=== PATIENT | male | born 1935 | race Caucasian/White ===

== ENCOUNTER → 2018-07-07 10:27 | Outpatient (CLI) | payer MEDICARE, BC ==
[~2018-07-07 10:27] MED LIST: BAYER CHEWABLE81 MG PO; DIOVAN160 MG PO; LIPITOR20 MG PO; LOSARTAN-HCTZ1 EAC2 PO; PLAVIX75 MG PO; TOPROL XL100 MG PO
[2018-07-24 09:31] VITALS: BMI 32.7
== END | disposition home or self-care (01) ==
LOC: D.RT 10:27
DX: C34.32 Malignant neoplasm of lower lobe, left bronchus or lung (principal)

== ENCOUNTER 2018-07-21 08:30 | Outpatient (CLI) | payer MEDICARE, BC ==
--- NOTE | ~2018-07-21 | ST ---
PATIENT:ELVIA MUNOZ MEDICAL RECORD: [id number] SEX: M LOCATION:[facility] ORDER #: ADMISSION DATE: 07/21/18 AGE OF PATIENT: 83 REFERRING PHYSICIAN: INTERPRETING PHYSICIAN: DELVIN CENTENO MD DATE OF SERVICE: 07/21/2018 Nuclear Stress Test INDICATION: Abnormal ECG, preoperative evaluation of dyspnea on exertion, shortness of breath, hypertension and hyperlipidemia. He was exercised on standard Lexiscan protocol with 33.0 mCi injected at peak stress, 10.5 mCi of sestamibi were used previously for rest images. FINDINGS: Gated SPECT reveals preserved ejection fraction at 60% with decreased thickening and brightening throughout the inferior segments. SPECT IMAGING: Cardiolite was used as myocardial fusion agent. There is moderate-sized perfusion defect inferiorly. This is a mixed perfusion defect, partially fixed, partially reversible including the basal, mid apical, inferior thymus as well as apex itself. The remaining segments are with homogeneous uptake at rest and stress. OVERALL IMPRESSION: 1. This is an abnormal nuclear stress test with ischemia inferiorly and apically. 2. Gated SPECT reveals preserved ejection fraction of 60% in this patient with ongoing symptomatology, the current scan does suggest the presence of hemodynamically significant coronary artery disease. We will proceed with coronary angiography to followup study. TRANSINT:[id number] Voice Confirmation ID: [id number] DOCUMENT ID: [id number] DELVIN CENTENO MD at 1925 CC: [id number] DICTATION DATE: 07/21/18 142 FILENET ARCHITECT: 07/21/182119 PRE IN [address] [place] [address]
--- NOTE | ~2018-07-21 | HP ---
PATIENT: ELVIA MUNOZ MEDICAL RECORD: [id number] ACCOUNT: [id number] LOCATION:[facility] : 35 ADMISSION DATE: 07/21/18 PCP: RICHA TA MD HISTORY AND PHYSICAL EXAMINATION NameMORHINA CHOU (83yo, M) ID# [id number]. Date/Time07/19/2018 02:11BIQIY07/30/193Service Dept.NP_[facility] ClinicProviderDABENITO NEW MDInsuranceMed Primary: MEDICARE-[place] (MEDICARE) Insurance # : [id number] Employer Name : RETIRED Prescription: ARBCBS - Member is eligible. Chief Complaint Lung cancer LLL adenocarcinoma Vitals BP:148/82 sitting R arm 07/19/2018 02:36 pmHR:84/reg 07/19/2018 02:36 pmHt:6 ft 2 in 07/19/2018 02:34 pmWt:254 lbs 07/19/2018 02:34 pmBMI:32.6 07/19/2018 02:34 pmAllergies Reviewed Allergies HYDROCODONE: NauseaLATEX, NATURAL RUBBER: Rashknee replacementMedications Reviewed Medications [facility] 20 mg bydady05/07/18 filledPRIMEmetoprolol succinate ER 100 mg tablet,extended release 24 hr06/26/18 filledPRIMEPreserVision AREDS07/18/18 [facility] Cent[facility]als[facility] 160 mg-hydrochlorothiazide 12.5 mg /21/18 filledPRIMEProblems Reviewed Problems 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 HPI HISTORY AND PHYSICAL [id number] ELVIA MUNOZ Lungs/Pleura Mass or Nodule Reported by patient. Symptoms: coughing; history of skin cancer poorly differentiated adenocarcinoma discovered approximately 2 months ago. Negative PET, negative EBUS former smoker, asymptomatic No coronary history ROS Additionally reports: as reviewed in the chart with the patient ROS as noted in the HPI Physical Exam Patient is an 83-year-old male. Constitutional: General Appearance well nourished and developed and healthy-appearing. Level of Distress NAD. Ambulation ambulating normally. Cardiovascular: Apical Impulse not displaced or no thrill. Heart Auscultation no murmurs, rubs, or gallops and RRR. Arterial Pulses 2+ bilateral radial. Edema no edema or varicosities. Lungs: Repiratory Effort no dyspnea. Percussion no hyperresonance or dullness or flatness. Auscultation no wheezing, rhonchi, or rales / crackles and breathing sounds normal and good air movement. Abdomen: Inspection and Palpation no tenderness, guarding, or masses and soft and non-distended. Liver no hepatomegaly. Spleen no splenomegaly. Ears, Nose, Throat: Hearing grossly normal hearing. Oropharynx: moist mucous membranes. Musculoskeletal System: Gait And Stance normal gait and stance. Digits and Nails normal nails and no cyanosis. Joints, Bones, and Muscles normal strength and movement of all extremities. Neurologic: Cranial Nerves grossly intact. Sensation grossly intact. Lymph Nodes: Lymph Nodes no cervical LAD or supraclavicular LAD. Eyes: Lids and Conjunctivae no discharge or pallor and non-injected. Pupils PERRLA. EOM EOMI. Sclerae non-icteric. Neck: Neck no masses, enlarged lymph nodes, or carotid bruits and supple and trachea midline. Thyroid no enlargement or nodules and non-tender. Skin: Inspection and Palpation no rash, lesions, ulcers, or jaundice. Assessment / Plan 1. Malignant tumor of lung C34.90: Malignant neoplasm of unspecified part of unspecified bronchus or lung Patient Instructions preoperative cardiac workup, need CT chest for anatomical imaging Discussion Notes we discussed the rationale for surgery, the alternatives, benefits, the risks. The patient Roni's will likely require a thoracotomy with lymph node dissection. He gives consent. HISTORY AND PHYSICAL [id number] ELVIA MUNOZ, NILO Moon MD at 1236 CC: [id number] DICTATION DATE: 07/19/18 1440 GAS CONTROLLER: RELL 07/20/18 1557 PRE IN [facility] [address] [place] [address]
[2018-07-21] MEDS ORDERED: TOPROL XL100 MG PO (13:12)
[2018-07-21] MEDS ORDERED: LOSARTAN-HCTZ1 EAC2 PO (13:12)
[2018-07-21] MEDS ORDERED: LIPITOR20 MG PO (13:13)
[2018-07-24] MEDS ORDERED: BAYER CHEWABLE81 MG PO (09:12)
[2018-07-24] MEDS ORDERED: DIOVAN160 MG PO (09:12)
[2018-07-24 09:31] VITALS: BMI 32.7
[2018-07-24] MEDS ORDERED: PLAVIX75 MG PO (12:05)
== END 2018-07-21 14:00 | disposition home or self-care (01) ==
LOC: D.OPS 08:30 → D.SDCHOLD 09:00 → EDSTATUS 09:00 → D.OPS 14:00
DX: R91.8 Other nonspecific abnormal finding of lung field (principal); Z01.812 Encounter for preprocedural laboratory examination; Z01.811 Encounter for preprocedural respiratory examination; Z01.810 Encounter for preprocedural cardiovascular examination

== ENCOUNTER → 2018-07-24 08:01 | Outpatient (CLI) | payer MEDICARE, BC ==
[~2018-07-24] VITALS: Ht 188 cm; Wt 115.5 kg
--- NOTE | ~2018-07-24 | OP ---
PATIENT NAME: ELVIA MUONZ MEDICAL RECORD: [id number] :35 LOCATION:[facility] ADMISSION DATE: SURGEON: DELVIN CENTENO MD DATE OF OPERATION: 07/24/2018 DATE OF SERVICE: 07/24/2018 PROCEDURES: 1. PTCA stent of LAD. 2. Left heart catheterization. 3. Selective coronary angiography. 4. Left ventriculogram. INDICATION: Angina and coronary artery disease. PROCEDURE IN DETAIL: After informed consent was obtained and after a detailed description of the risks, benefits as well as alternative therapies, the patient elected to proceed with angiogram and angioplasty. The right radial area was prepped and draped in normal sterile fashion. Right radial artery was cannulated via modified Seldinger technique with placement of 6-Japanese sheath. All catheters exchanged through this sheath. FINDINGS: The left ventriculogram was performed in standard 30-degree CRUZ view, reveals good cardiac wall motion throughout all segments. Overall ejection fraction estimated 60%. SELECTIVE CORONARY ANGIOGRAPHY: 1. Left main is with no significant angiographic disease. 2. Left anterior descending has a 90% stenosis in the mid vessel. 3. Left circumflex has mild irregularities, but no flow-limiting stenosis. 4. Right coronary has mild irregularities, but no flow-limiting stenosis. PTCA STENT OF THE LAD: The stent used was a 2.5 x 14 mm Integrity. Result was 0% residual stenosis. OVERALL IMPRESSION: Successful percutaneous transluminal coronary angioplasty stent of the left anterior descending going from 90% initial stenosis to 0% residual. TRANSINT:[id number] Voice Confirmation ID: [id number] DOCUMENT ID: [id number] DELVIN CENTENO MD at 1925 CC: [id number] DICTATION DATE: 07/24/18 1139 LEAD SUPPLY WORKER: 07/24/18 1149 DEP CLI 07/24/18 [place] [id number] [place] [id number]
--- NOTE | ~2018-07-24 | HP ---
PATIENT: ELVIA HOLGUIN MEDICAL RECORD: [id number] ACCOUNT: [id number] LOCATION:[facility] : 35 ADMISSION DATE: 07/24/18 PCP: RICHA TA MD HISTORY AND PHYSICAL EXAMINATION DATE OF SERVICE: 07/24/2018 DIAGNOSES: 1. Angina. 2. Shortness of breath. 3. Chronic obstructive pulmonary disease. 4. Left lower lobe adenocarcinoma. 5. Abnormal nuclear stress test, inferoapical ischemia. 6. Hypertension. 7. Hyperlipidemia. HISTORY OF PRESENT ILLNESS: Mr. Holguin is a gentleman with multiple cardiac risk factors who presents for resection of adenocarcinoma, underwent stress testing with Cardiolite imaging revealing a large reversible defect inferiorly and apically, is now brought for cardiac catheterization. PHYSICAL EXAMINATION: GENERAL APPEARANCE: Well nourished, well developed, appears stated age. Level of distress, comfortable. PSYCHIATRIC: Mental status, alert, normal affect. Orientation, oriented to time, place and person. EYES: Lids and conjunctivae, noninjected. No discharge, no pallor. ENT: Lips, teeth, gums, normal dentition. Oropharynx, no cyanosis, no pallor. NECK: Carotid arteries, bilateral normal upstroke, no bruits, no thrills. JUGULAR VEINS: No jugular venous pressure or distention. CERVICAL LYMPH NODES: Nontender, nonenlarged. THYROID: Not enlarged. Nontender. No nodules. LUNGS: Respiratory effort, unlabored. CHEST: Normal curvature. No thoracic deformity. No chest wall tenderness. Percussion, resonant. Auscultation, clear. No wheezes, no rales, no rhonchi. CARDIOVASCULAR: Precordial exam, nondisplaced. No heaves or pericardial thrills. Rate and rhythm, regular. Heart sounds, normal S1, normal S2. No S3, no gallop, no rub. Systolic murmur, not heard. Diastolic murmur, not heard. EXTREMITIES: No cyanosis, no edema. Peripheral pulses, full and equal in all extremities, except as noted. No bruits appreciated. ABDOMEN: Soft, nondistended. Normal aorta. No bruit. Nontender. No masses. Liver, nontender, no hepatomegaly. Spleen, nontender, no splenomegaly. MUSCULOSKELETAL: No joint tenderness. No joint swelling. No erythema. NEUROLOGICAL: Normal gait, normal strength, normal tone. SKIN: Warm and dry. REVIEW OF SYSTEMS: The patient reports easy bruising but reports no swollen glands. The patient reports no fever, no night sweats, no significant weight gain, no significant weight loss. No significant exercise tolerance. The patient reports no dry eyes, no irritation, no vision change. Patient reports no difficulty hearing and no ear pain. Patient reports no frequent nose bleeds or nose and sinus problems. Patient reports on arm pain on exertion. No shortness of breath while lying down. No history of heart murmur. Patient reports no cough, no wheezing or coughing up blood. Patient reports no abdominal pain, no vomiting. Normal appetite. No diarrhea and not vomiting HISTORY AND PHYSICAL [id number] ELVIA HOLGUIN blood. No nausea and no constipation. Patient reports no incontinence. No difficulty urinating. No hematuria. No increased frequency. Patient reports no muscle aches. No weakness, no arthralgias, no back pain. No swelling of the extremities. Patient reports no abnormal mole, no jaundice, no rashes. Reports no loss of consciousness. No weakness and no numbness. No seizures, dizziness, or headaches. The patient reports no depression, no sleep disturbance, feeling safe in a relationship and no alcohol abuse. Patient reports on fatigue. Reports no runny nose or sinus pressure. No itching, no hives, and no frequent sneezing. OVERALL IMPRESSION: Abnormal nuclear stress test with multiple cardiac risk factors, high likelihood of hemodynamically significant coronary artery disease. We will proceed with coronary angiography. Further care depends upon findings of the angiography. TRANSINT:[id number] Voice Confirmation ID: [id number] DOCUMENT ID: [id number] DELVIN CENTENO MD at 1925 CC: [id number] DICTATION DATE: 07/24/18 1107 KNEE BOLTER: 07/24/18 1121 DEP CLI 07/24/18 [id number] [place] [address]
--- NOTE | ~2018-07-24 | HEMODYNAMI ---
PATIENT:ELVIA MUNOZ MEDICAL RECORD: [id number] : 35 LOCATION:[facility] ADMISSION DATE: 07/24/18 Generatedon:07/24/201811:40 Patient name: ELVIA MUNOZ Patient #: [id number] SSN: : 1935 Date of study: 07/24/2018 Page: Of Hemodynamic Procedure Report Patient Data Patient Demographics Procedure consent was obtained First Name: ELVIA Gender: Male Last Name: ALEXANDER : 1935 [facility] Initial: JACKI Age: 83 year(s) Patient #: [id number] Race: Unknown Additional ID: [id number] Contact details [address]: [address] [place] [address] State: [place] City: [place] Zip code: [address] Past Medical History Allergies Allergen Reaction Date Comments Reported Other allergy 07/24/2018 Hydrocodone, Latex Admission Admission Data Admission Date: 07/24/2018 Admission Time: 8:01 Lab Results Lab Result Date: 07/24/2018 Lab Result Time: 0:00 Biochemistry Name Units Result Min Max BUN mg/dl 20 --(----)*- 7 18 Creatinine mg/dl 1.1 --(--*-)-- 0.6 1.3 CBC Name Units Result Min Max Hemoglobin g/dl 14.1 --(*---)-- 13.5 17.5 Procedure Procedure Types Cath Procedure Diagnostic Procedure [facility] ED w/Coronaries PCI Procedure Coronary Stent Coronary Stent Initial Procedure Description Procedure Date Procedure Date: 07/24/2018 Procedure Start Time: 11:26 Procedure End Time: 11:38 Procedure Staff Name Function Capo Mena MD Performing Physician Edward Trujillo RT Tile Machine Operator Joanna Amaya RT Monitor Connor Navarro RN Nurse Linnette Whaley RT Scrub Felisha Tineo RN Tile Machine Operator Procedure Data Cath Procedure Fluoroscopy Diagnostic fluoroscopy Total fluoroscopy Time: 2.6 time: 2.6 min min Diagnostic fluoroscopy Total fluoroscopy dose: 748 dose: 748 mGy mGy Contrast Material Contrast Material Type Amount (ml) Isovue 300 76 Entry Location Entry Primary Successful Side Size Upsize Upsize Entry Closure Hammer ccessful Closure Location (Fr) 1 (Fr) 2 (Fr) Remarks Device Remarks Radial Right 6 Fr Mechanical artery Short Compression Estimated blood loss: 10 ml Diagnostic catheters Device Type Used For End Catheter Placement DIAGNOSTIC Mustang 110cm 5 Procedure Fr catheter ([id number]) Procedure Complications No complications Procedure Medications Medication Administration Route Dosage Oxygen etCO2 Nasal cannula 2 l/min Lidocaine 2% added to field 20 Heparin Flush Bag added to field 2 bags (1000units/500ml NS) 0.9% NaCl I.V. 100 ml/hr Heparin Bolus I.V. 4000 units Integrilin (Bolus I.V. 10.2 ml 2mg/ml) Versed I.V. 1 mg Fentanyl I.V. 50 mcg Versed I.V. 0.5 mg Fentanyl I.V. 25 mcg Plavix P.O. 600 mg Radial Cocktail I.A. 1 syringe (Verapomil 2mg/Nitro 400mcg/Heparin 1500units) Hemodynamics Rest Heart Rate: 66 (bpm) Snapshots Pre Cath Intra NCS Post Cath Vital Signs Time Heart Resp SPO2 etCO2 NIBP Rhythm Pain Sedation Rate (ipm) (%) (mmHg) (mmHg) Status Level (bpm) 11:13:45 77 20 97 43 123/69(89) NSR 0 (11) 10(A) , No pain 11:17:59 72 15 95 38.5 115/65(87) NSR 0 (11) 10(A) , No pain 11:22:09 63 14 98 37.7 115/70(83) NSR 0 (11) 10(A) , No pain 11:26:21 65 14 97 40 114/62(85) NSR 0 (11) 9(A) , No pain 11:30:29 69 13 96 30.2 104/58(80) NSR 0 (11) 9(A) , No pain 11:34:37 71 14 96 32.4 103/59(76) NSR 0 (11) 9(A) , No pain 11:38:42 74 14 97 48.1 No Cuff NSR 0 (11) 10(A) , No pain Medications Time Medication Route Dose Verified Delivered Reason Not es Effectiveness by by 11:01:03 Oxygen etCO2 2 l/min Capo Baeza Nasal Rajesh Tineo RN cannula 11:01:31 Lidocaine 2% added 20ml Capo Scanlon for local to vial Rajesh Mena MD anesthetic field 11:01:38 Heparin Flush added 2 bags Capo Scanlon used for Bag to Rajesh Mena MD procedure (1000units/500ml field NS) 11:01:49 0.9% NaCl I.V. 100 Capo Baeza Per physician ml/hr Rajesh Tineo RN 11:16:13 Versed I.V. 1 mg Capo Baeza for sedation Rajesh Tineo RN 11:16:20 Fentanyl I.V. 50 mcg Capo Baeza for sedation Rajesh Tineo RN 11:22:25 Versed I.V. 0.5 mg Capo Baeza for sedation Rajesh Tineo RN 11:22:29 Fentanyl I.V. 25 mcg Capo Baeza for sedation Rajesh Tineo RN 11:27:55 Radial Cocktail I.A. 1 Capo Scanlon for (Verapomil syringe Rajesh Mena MD vasodilation 2mg/Nitro 400mcg/Heparin 1500units) 11:31:40 Heparin Bolus I.V. 4000 Capo Baeza for dave ified units Rajesh Tineo RN anticoagulation with dr mena 11:33:45 Integrilin I.V. 10.2 ml Capo Baeza for (Bolus 2mg/ml) Rajesh Tineo RN antiplatelet therapy 11:39:37 Plavix P.O. 600 mg Capo Baeza for Rajesh Tineo RN antiplatelet therapy Procedure Log Time Note 10:59:51 Edward Trujillo RT(R) sent for patient. Start room use. 10:59:52 Time tracking: Regular hours (M-F 7:00 - 5:00) 10:59:57 Plan of Care:Hemodynamics will remain stable., Cardiac rhythm will remain stable., Comfort level will be maintained., Respiratory function will remain adequate., Patient/ family verbilizes understanding of procedure., Procedure tolerated without complication., Recovers from procedure without complications.. 11:01:03 Oxygen 2 l/min etCO2 Nasal cannula was administered by Felisha Tineo RN; ; 11:01:31 Lidocaine 2% 20ml vial added to field was administered by Capo Mena MD; for local anesthetic; 11:01:38 Heparin Flush Bag (1000units/500ml NS) 2 bags added to field was administered by Capo Mena MD; used for procedure; 11:01:49 0.9% NaCl 100 ml/hr I.V. was administered by Felisha Tineo RN; Per physician; 11:07:13 Warm blankets applied, and rosanna hugger turned on for patient comfort. 11:07:14 Correct patient and procedure confirmed by team. 11:07:16 Signed procedure consent form obtained from patient. 11:07:18 ECG and BP/O2 sat monitors applied to patient. 11:07:24 H&P Date Dictated: 07/24/2018 Within 30 days and on chart., H&P Addendum completed by physician on day of procedure. (MUST COMPLETE FOR ALL OUTPATIENTS). 11:07:26 Pre-procedure instructions explained to patient. 11:07:28 Family in waiting room. 11:07:30 Patient NPO since Midnight. 11:07:54 Patient allergic to Other allergyHydrocodone, Latex 11:08:07 Is the patient allergic to Iodine/contrast media? No. 11:08:35 Snore? Yes 11:08:36 Sleep apnea? No 11:08:52 Dentures? Yes in tight 11:08:58 Is patient on blood thinner?No 11:09:09 Patient diabetic? No. 11:09:18 Patient pain scale 0/10 ?. 11:09:31 IV patent on arrival in left forearm with 0.9% NaCl at O. 11::56 Lab Result : Creatinine 1.1 mg/dl 11::56 Lab Result : BUN 20 mg/dl 11::56 Lab Result : Hemoglobin 14.1 g/dl 11:10:02 Right Radial & Right Groin area was prepped with chlora-prep and draped in sterile fashion 11:10:03 Alarms reviewed by R. N. 11:10:04 Sharps counted by scrub and verified by R.N. 11:12:41 Vital chart was started 11:12:42 Full Disclosure recording started 11:15:04 Baseline sample Acquired. 11:15:09 Rhythm: sinus rhythm 11:15:30 Physician arrived 11:15:31 --------ALL STOP TIME OUT------ 11:15:31 Final Timeout: patient, procedure, and site verified with staff and physician. All members of the team are in agreement. 11:15:33 Right Radial & Right Groin site verified by team. 11:15:37 Physical assessment completed. ASA score P 2 - A patient with mild systemic disease as per Capo Mena MD. 11:15:42 Sedation plan: IV Moderate Sedation Medication:Versed, Fentanyl 11:15:47 Use device set Radial Dx or PCI 11:15:49 ACIST Syringe (86392) opened to sterile field. 11:15:49 Medline Cath Pack ([id number]) opened to sterile field. 11:15:50 Bag Decanter (2002S) opened to sterile field. 11:15:50 DIAGNOSTIC WIRE .035 260cm J wire (980379) opened to sterile field. 11:15:51 ACIST Hand Control (70223) opened to sterile field. 11:15:52 ACIST Manifold (35632) opened to sterile field. 11:15:53 Tegaderm 4 x 4 (1626W) opened to sterile field. 11:15:55 MBrace Wrist Support ([id number]) opened to sterile field. 11:15:57 NEEDLE Cook 21G 4cm Radial (T69338) opened to sterile field. 11:16:01 SHEATH 6FR Slender ([id number]) opened to sterile field. 11:16:13 Versed 1 mg I.V. was administered by Felisha Tineo RN; for sedation; 11:16:20 Fentanyl 50 mcg I.V. was administered by Felisha Tineo RN; for sedation; 11:22:25 Versed 0.5 mg I.V. was administered by Felisha Tineo RN; for sedation; 11:22:29 Fentanyl 25 mcg I.V. was administered by Felisha Tineo RN; for sedation; 11:25:46 Zero performed for pressure channel P1 11:25:56 Procedure started. 11:26:08 Local anesthetic to right radial artery with Lidocaine 2% by Capo Mena MD.INITIAL ACCESS ONLY 11:26:19 A 6 Fr Short sheath was inserted into the Right Radial artery 11:27:45 A DIAGNOSTIC Mustang 110cm 5 Fr catheter ([id number]) was advanced over the wire and used for Procedure. 11:27:55 Radial Cocktail (Verapomil 2mg/Nitro 400mcg/Heparin 1500units) 1 syringe I.A. was administered by Capo Mena MD; for vasodilation; 11:28:21 LV angiography performed. 11:: EF : 60 % 11::37 LCA angiography performed. 11:29:07 RCA angiography performed. 11:29:35 Catheter removed. 11:31:19 INFLATOR Merit BasixCompak (RI7368) opened to sterile field. 11:31:19 CHOICE PT Extra Support 182cm wire ([id number]) opened to sterile field. 11:31:20 GUIDE 6FR XBLAD 3.5 catheter ([id number]) opened to sterile field. 11:31:27 Proceeding to intervention. 11:31:40 Heparin Bolus 4000 units I.V. was administered by Felisha Tineo RN; for anticoagulation; verified with dr mena 11:31:54 6 Fr XBLAD 3.5 guide catheter was inserted over the wire 11:32:04 choice pt ex wire advanced. 11:32:07 Wire advanced across lesion. 11:33:45 Integrilin (Bolus 2mg/ml) 10.2 ml I.V. was administered by Felisha Tineo RN; for antiplatelet therapy; 11:34:24 Place stent Inflation Number: 1 A INTEGRITY RX 2.5 x 14 stent ([id number]) was prepped and advanced across the Mid LAD. The stent was deployed at 21 MIKE for 0:08 (min:sec). 11:36:39 TR BAND Standard ([id number]) opened to sterile field. 11:36:52 Guide catheter removed. 11:37:05 Sheath removed intact; hemostasis achieved with Mechanical Compression to the Right Radial artery. 11:37:13 Procedure ended.(Physican Out) 11:37:24 Fluoroscopy time 02.60 minutes. 11:37:28 Fluoroscopy dose: 748 mGy 11:37:28 Flurop Dose total: 748 11:37:34 Contrast amount:Isovue 300 76ml. 11:37:36 Sharps counted by scrub and verified by R.N. 11:37:44 TR band inflated with 11cc of air. 11:37:46 Insertion/operative site no bleeding no hematoma. 11:37:47 Post Procedure Pulses reassessed and unchanged 11:37:52 Post-procedure physical assessment completed. ASA score P 2 - A patient with mild systemic disease as per Capo Mena MD. 11:37:56 Post procedure rhythm: sinus rhythm 11:37:58 Estimated blood loss: 10 ml 11:38:00 Post procedure instruction explained to patient.Patient verbalizes understanding. 11:38:13 Procedure type changed to Cath procedure, Diagnostic procedure, LHC, LHC w/Coronaries, PCI procedure, Coronary Stent, Coronary Stent Initial 11:38:14 Procedure and supply charges have been captured, reviewed, submitted and are correct. 11:38:38 Procedure Complication : No complications 11:38:41 Vital chart was stopped 11:38:42 See physician's report for complete and final results. 11:38:46 Patient transfered to Pre/Post Procedure Room with Stretcher. 11:38:49 Procedure ended. 11:38:49 Full Disclosure recording stopped 11:38:52 End room use (Document Last) 11:38:58 ACC-PCI Only Patient was given prescriptions, or instructed by Capo Mena MD to start/continue the following medications upon discharge: Plavix 11:39:37 Plavix 600 mg P.O. was administered by Felisha Tineo RN; for antiplatelet therapy; Intervention Summary Intervention Notes Time ActionType Lesion and Equipment Action# Pressure Duration Attributes Used 11:34:24 Place stent Mid LAD INTEGRITY RX 1 21 00:08 2.5 x 14 stent ([id number]) Device Usage Item Name Manufacture Quantity Catalog Number [facility] Part Current [facility] Lot# / Charge Number Stock Stock Serial# Code ACIST Acist 1 16396 243581 623218 265149 20 Syringe Medical (79829) Systems Inc Medline Cath Medline 1 [id number] 599267 65641 768164 5 Pack ([id number]) Bag Decanter Microtek 1 2001S 131207 40408 876621 5 () Medical Inc. DIAGNOSTIC [place] 1 652777 919215 416058 557459 30 WIRE .035 260cm J wire (855791) ACIST Hand Acist 1 25953 493512 834842 294514 5 Control Medical (04285) Systems Inc ACIST Acist 1 34633 950906 835770 946753 5 Manifold Medical (20299) Systems Inc Tegaderm 4 x 3M 1 1626W 321434 223282 553527 5 4 (1626W) MBrace Wrist Advanced 1 140-0250-00 831129 46491 343930 5 Support Vascular ([id number]) Dynamics NEEDLE Cook Hunt Medical 1 M69831 970727 596956 295820 5 21G 4cm Radial (D05390) SHEATH 6FR Terumo 1 [id number] 211412 084902 710983 40 Slender ([id number]) DIAGNOSTIC Terumo 1 40-5013 422795 001250 446357 5 Mustang 110cm 5 Fr catheter (325964) INFLATOR Merit 1 TL2018 181904 433545 084609 15 [facility] Medical BasixCompak (BQ6063) CHOICE PT [place] 1 [id number] 932689 272804 275546 5 Extra Scientific Support 182cm wire ([id number]) GUIDE 6FR Cardinal 1 [id number] 049401 757062 495378 10 XBLAD 3.5 Health catheter ([id number]) INTEGRITY RX Medtronic 1 [id number] 515191 099382 867806 5 [id number] 2.5 x 14 stent ([id number]) TR BAND Terumo 1 [id number] 055876 849852 100509 40 Standard ([id number]) Signature Audit Marlette Stage Time Signature Unsigned Intra-Procedure 07/24/2018 Joanna Amaya 11:40:52 AM RT(R) Signatures Monitor : Joanna Amaya Signature : RT Date : Time : [address] [address]
[2018-07-24 09:31] VITALS: BP 118/70; Ht 188 cm; Wt 115.5 kg
[2018-07-24 09:36] LABS: BASOPHILS 0.3 % (0-2); EOSINOPHILS 1.9 % (0-7); HEMATOCRIT 42.1 % (42.0-54.0); HEMOGLOBIN 14.1 g/dL (13.5-17.5); IMMATURE GRANULOCYTES 0.4 % (0-5); MCH 30.3 pg (26.0-34.0); MCHC 33.5 g/dL (31.0-37.0); MCV 90.5 fL (80.0-100.0); MEAN PLATELET VOLUME 10.5 fL (7.4-10.4); MONOCYTES 6.1 % (2-11); NEUTROPHILS 66.3 % (40-80); PLATELET COUNT 186 10x3/uL (130-400); RBC 4.65 10x6/uL (4.20-6.10); RDW 13.9 % (11.5-14.5); WBC 10.4 10x3/uL (4.8-10.8)
[2018-07-24 09:47] LABS: ANION GAP 8.3 mmol/L (8-16); CALCIUM 9.3 mg/dL (8.5-10.1); CARBON DIOXIDE 31.7 mmol/L (21.0-32.0); CREATININE - SERUM 1.1 mg/dL (0.6-1.3)
== END | disposition home or self-care (01) ==
LOC: D.CATH 08:01
PROVIDERS: Internal Medicine Interventional Cardiology
DX: I25.119 Atherosclerotic heart disease of native coronary artery with unspecified angina pectoris (principal); I10 Essential (primary) hypertension; E78.5 Hyperlipidemia, unspecified; R94.30 Abnormal result of cardiovascular function study, unspecified; C34.32 Malignant neoplasm of lower lobe, left bronchus or lung; J44.9 Chronic obstructive pulmonary disease, unspecified

== ENCOUNTER → 2018-08-24 15:39 | Outpatient (CLI) | payer MEDICARE, BC ==
[2018-07-24 09:31] VITALS: BMI 32.7
== END | disposition home or self-care (01) ==
LOC: D.CT 15:39
DX: I65.23 Occlusion and stenosis of bilateral carotid arteries (principal)

== ENCOUNTER 2018-08-31 07:30 | Inpatient (IN) | payer MEDICARE, BC ==
[2018-08-28 14:02] LABS: HEMATOCRIT 41.7 % (42.0-54.0); HEMOGLOBIN 14.1 g/dL (13.5-17.5); MCH 30.2 pg (26.0-34.0); MCHC 33.8 g/dL (31.0-37.0); MCV 89.3 fL (80.0-100.0); RBC 4.67 10x6/uL (4.20-6.10); WBC 10.1 10x3/uL (4.8-10.8)
[2018-08-28 14:12] LABS: APTT 34.8 SECONDS (22.8-39.4); INR 0.98 (0.85-1.17); PROTIME 12.5 SECONDS (11.6-15.0)
[2018-08-28 14:28] LABS: ALBUMIN 3.3 g/dL (3.4-5.0); ALKALINE PHOSPHATASE 60 U/L (46-116); ALT (SGPT) 16 U/L (10-68); BILIRUBIN - TOTAL 0.34 mg/dL (0.2-1.3); CALC OSMOLALITY 284 mosm/kg (275-300); CALCIUM 8.9 mg/dL (8.5-10.1); CARBON DIOXIDE 28.8 mmol/L (21.0-32.0); CHLORIDE - SERUM 104 mmol/L (98-107); GLUCOSE 101 mg/dL (74-106); POTASSIUM - SERUM 4.2 mmol/L (3.5-5.1); PROTEIN - SERUM 7.7 g/dL (6.4-8.2); SODIUM 142 mmol/L (136-145); UREA NITROGEN 17 mg/dL (7-18); eGFR NON AFRICAN AMERICAN 76 mL/min (90-120)
[2018-08-28 14:54] LABS: APPEARANCE CLEAR (CLEAR); BILIRUBIN NEGATIVE (NEGATIVE); COLOR YELLOW (YELLOW); GLUCOSE NEGATIVE (NEGATIVE); KETONE NEGATIVE (NEGATIVE); NITRITE NEGATIVE (NEGATIVE); PROTEIN NEGATIVE (NEGATIVE); UROBILINOGEN NORMAL (NORMAL)
[2018-08-28 14:55] LABS: WHITE CELLS - URINE OCC /hpf (0-5)
[~2018-08-31] VITALS: Ht 188 cm; Wt 110.1 kg
[2018-09-01] VITALS (25 sets, daily range): BP systolic 90–140; BP diastolic 40–82; BMI 32.8; BMI 31.9
--- NOTE | 2018-09-01 19:00 | NUR ---
REPORT RECEIVED AND ASSESSMENT COMPLLETED. SEE FLOWSHEET FOR FULL DETAILS. VSS. WILL MONITOR THROUGHOUT SHIFT. PT IS POST OP VAT BY DR NEW. CHEST TUBES IN PLACE.
--- NOTE | 2018-09-01 21:00 | NUR ---
PT REPOSITIONED. TITRATING DRIPS TOLERATED. WILL MONITOR
[2018-09-02] VITALS (89 sets, daily range): BP systolic 84–143; BP diastolic 40–75
--- NOTE | 2018-09-02 02:42 | NUR ---
PT BECOMING INCREASINGLY CONFUSED. NO LONGER ORIENTED. MULTIPLE ATTEMPTS TO GET OUT OF BED. PT TRANSFERRED TO CV 5 ROOM FOR CLOSER MONITORING. IMMEDIATE VIEW OF NURSES STATION.
[2018-09-02 05:45] LABS: HEMATOCRIT 39.3 % (42.0-54.0); HEMOGLOBIN 13.4 g/dL (13.5-17.5); MCH 30.2 pg (26.0-34.0); MCHC 34.1 g/dL (31.0-37.0); MCV 88.7 fL (80.0-100.0); MEAN PLATELET VOLUME 10.4 fL (7.4-10.4); RBC 4.43 10x6/uL (4.20-6.10)
[2018-09-02 05:59] LABS: ALBUMIN 2.4 g/dL (3.4-5.0); ANION GAP 11.2 mmol/L (8-16); BILIRUBIN - TOTAL 0.93 mg/dL (0.2-1.3); CALCIUM 7.7 mg/dL (8.5-10.1); CARBON DIOXIDE 26.6 mmol/L (21.0-32.0); CREATININE - SERUM 1.2 mg/dL (0.6-1.3); POTASSIUM - SERUM 4.8 mmol/L (3.5-5.1); PROTEIN - SERUM 6.3 g/dL (6.4-8.2)
--- NOTE | 2018-09-02 15:53 | OP ---
PATIENT NAME: ELVIA MUNOZ MEDICAL RECORD: [id number] :35 LOCATION:[facility] ADMISSION DATE:09/01/18 SURGEON: REYNOLD NEW MD DATE OF OPERATION: 09/01/2018 SURGEON: Reynold New MD CLINICAL RECRUITER: Hali Rodriguez MD PROCEDURE PERFORMED: 1. Left thoracotomy, left lower lobe lobectomy. 2. Mediastinal lymph node dissection. 3. Primary bronchial closure. 4. Bronchoscopy. PREOPERATIVE DIAGNOSIS: Lung cancer. 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 ANESTHESIA: Double lumen, general endotracheal anesthesia. ESTIMATED BLOOD LOSS: 500 cc. TRANSFUSION: Two packed red blood cells. COMPLICATIONS: None. CONDITION: Stable. DISPOSITION: ICU. SPECIMENS: 1. Left lower lobe including hilar lymph nodes. 2. Several mediastinal lymph node stations including periaortic, hilar, and subcarinal, there were no significant inferior pulmonary ligament lymph nodes noted. OPERATIVE FINDINGS: Tumor in the lower lobe with large anthracotic nodes around the main trunk of the pulmonary artery in the lower lobe pulmonary artery as well as around the bronchus. The branches of the lower lobe pulmonary artery were divided with ligatures and later with pledgeted Prolene sutures, but the bronchus was divided due to dense reaction of the lymph nodes around it and closed in 2 layers and then reinforced with a pleural flap. Prior to the pleural flap, it was airtight under water with positive pressure ventilation and there was no air leak at the conclusion of the case. Tisseel was placed along the area of the lingula where the anterior portion of the fissure was completed. The upper lobe appeared to fill the entire space. OPERATIVE INDICATION: Lower lobe cancer. PROCEDURE IN DETAIL: The patient was brought to the operating suite, double lumen endotracheal tube was placed, position confirmed with bronchoscopy. The patient turned into the right lateral decubitus position with appropriate padding including axillary roll. Chest was sterilely prepped and draped. OPERATIVE REPORT [id number] ELVIA MUNOZ Posterolateral thoracotomy incision was made. A portion of the 6th rib was removed to allow a trapdoor type opening of the chest just over the fissure. There was no significant pleural effusion. A nearly complete fissure was noted and it was completed. The hilum was freed. Inferior pulmonary vein was dissected out and divided with ligatures and staple. Branches of the pulmonary artery were dissected out from the dense reaction of the lymph nodes and the bronchus was divided just at the level lymph node, all the large lymph nodes were removed and sent separately. Bronchus was closed with 2 layers of Prolene and then a thorough irrigation was undertaken. Hemostasis was ensured. Mediastinal lymph node dissection was performed. A section of pleura was taken posteriorly and sutured to cover the bronchial stump. Tisseel was placed along the lingula. Lung was reinflated. Chest tubes were placed anteriorly and posteriorly. Pericostal sutures were placed. Two layers of running PDS on the muscle, subcutaneous, and then skin clips. The patient returned to supine position, extubated to ICU. TRANSINT:[id number] Voice Confirmation ID: [id number] DOCUMENT ID: [id number] REYNOLD NEW MD at 1553 CC: RICHA TA MD and LATONIA GILLIS MD [id number] DICTATION DATE: 09/01/18 172 AUTO TRANSPORT DRIVER: 09/02/18 [address] [facility] [address] [place] [address]
--- NOTE | 2018-09-02 19:25 | NUR ---
REPORT REC'D AND CARE ASSUMED, REC'D PT AWAKE, ALERT, ORIENTED, WATCHING TV, O2 @ 4 LITERS VIA NC, RIGHT RADIAL BRIT WITH FLEXION BOARD IN USE, LEFT IJ CENTRAL LINE SEE FLOWSHEET FOR GTT'S AND RATES, LEFT UPPER LATERAL CHEST INCISION DRSG CDI, LEFT LATERAL CT'S X 2 TO 20CM H2O SUCTION, SANGUINOUS DRAINAGE PRESENT, NO AIR LEAK NOTED, DRSG CDI, ABD DISTENDED, SOFT, BS HYPOACTIVE, PT COMPLAINS OF NAUSEA, REPORTS EMESIS "AT NOON", CRITICORE SOLITARIO PATENT DRAINING CONCENTRATED URINE, SCDS INTACT, EPIDURAL TAPED SECURELY TO BACK INFUSING @ 5CC/HR WITH 4CC Q15MIN BOLUS AVAILABLE FOR BREAKTHROUGH PAIN, PT DENIES PAIN AT THIS TIME, PRODUCTIVE SOUNDING COUGH NOTED, WILL MONITOR CLOSELY FOR CHANGES.
--- NOTE | 2018-09-02 20:00 | NUR ---
PT VOMITTED 200CC WHITE EMESIS WITH FOOD PARTICLES, COOL CLOTH PROVIDED AND 4MG ZOFRAN GIVEN SLOW IVP, BP STABLE, WILL MONITOR CLOSELY FOR CHANGES.
--- NOTE | 2018-09-02 21:00 | NUR ---
COUGHING AND DEEP BREATHING DONE WITH PATIENT, PT DENEIS NAUSEA AT THIS TIME, BP STABLE, WILL ATTEMPT TO WEAN DRIPS TOLERATED.
--- NOTE | 2018-09-02 22:30 | NUR ---
COMPLETE BATH AND LINEN CHANGE PROVIDED, SOLITARIO CARE PROVIDED, PT [id number] UP IN BED, LEFT LATERAL CT DRSG CHANGED, DRAIN SPONGES AND 4X4'S APPLIED, COVERED WITH EXTRA LARGE TEGADERM, PT TOLERATED ROLLING WELL FOR LINEN CHANGE, DENIES PAIN OR NAUSEA, EPIDURAL REMAINS TAPED SECURELY IN PLACE, PT REPOSITIONED FOR COMFORT, WILL MONITOR FOR CHANGES, CALL LIGHT IN REACH.
--- NOTE | 2018-09-02 23:00 | NUR ---
REASSESSMENT COMPLETED, PT REPOSITIONED UP IN BED FOR COMFORT, PT WATCHING TV, ICE WATER PROVIDED, PT DENIES FURTHER NAUSEA, SR UP X 2, CALL LIGHT IN REACH, VISIBLE TO NURSES STATION.
[2018-09-03] VITALS (87 sets, daily range): BP systolic 88–129; BP diastolic 43–64
--- NOTE | 2018-09-03 01:00 | NUR ---
NO CHANGES IN STATUS AT THIS TIME, CONTINUING TO WEAN DOPAMINE TOLERATED.
--- NOTE | 2018-09-03 03:00 | NUR ---
RT AT BS AFTER BREATHING TX, PT PULLING 1250 0N IS, PRODUCTIVE SOUNDING COUGH, PT REPOSITIONED ONTO LEFT SIDE, DENIES NEEDS, WILL CONT TO MONITOR.
--- NOTE | 2018-09-03 03:45 | NUR ---
RADIOLOGY AT BS FOR AM CXR
--- NOTE | 2018-09-03 05:15 | NUR ---
AM LAB DRAWN FROM BRIT AND SENT TO LAB.
[2018-09-03 05:26] LABS: HEMATOCRIT 34.7 % (42.0-54.0); HEMOGLOBIN 11.3 g/dL (13.5-17.5); MCH 29.7 pg (26.0-34.0); MCHC 32.6 g/dL (31.0-37.0); MEAN PLATELET VOLUME 9.6 fL (7.4-10.4); RBC 3.81 10x6/uL (4.20-6.10); RDW 14.5 % (11.5-14.5); WBC 14.4 10x3/uL (4.8-10.8)
[2018-09-03 05:33] LABS: MCV 91.1 fL (80.0-100.0)
[2018-09-03 05:43] LABS: ALBUMIN 2.1 g/dL (3.4-5.0); ANION GAP 10.9 mmol/L (8-16); BILIRUBIN - TOTAL 0.5 mg/dL (0.2-1.3); CALCIUM 7.5 mg/dL (8.5-10.1); CARBON DIOXIDE 28.2 mmol/L (21.0-32.0); CREATININE - SERUM 1.1 mg/dL (0.6-1.3); POTASSIUM - SERUM 4.1 mmol/L (3.5-5.1); PROTEIN - SERUM 5.2 g/dL (6.4-8.2)
--- NOTE | 2018-09-03 06:00 | NUR ---
ICE WATER PROVIDED, PT DENIES NAUSEA OR PAIN THIS AM, NO VISITORS IN AT THIS TIME.
--- NOTE | 2018-09-03 16:18 | NUR ---
0715-RECIEVED PER FLOW SHEET-AWAKE AND ALERT-CT-NO AIRLEAK NOTED WITH COUGH OR RESPIRATIONS-R RADIAL BRIT POSITIONAL TO MOVEMNT -NIBP SET FOR Q1H COMPARISON READING-NEOSYNEPHRINE GTT INFUSING -PER PARAMETER >90SYS-SR ON MONITOR-O2 TUBING SEC[address] IN [address] BY ADHESIVE TAPE(FAMIILY PLACED)-PT NOT ABLE TO KEEP IN PLACE-EPIDURAL IN PLACE AND SEE FLOW SHEET 0830-FAMILY AT [facility] AND UPDATED SAME WITH PT EXPERIENCE OF VOMITING AT 2100-UNDIGESTED FOOD-STRESSED CLEAR LIQUID TOLERATED ONLY; UNTIL SEEN BY DR NEW- RELATED PAST INCIDENT OF ILEUS FOLLOWING A PREVIOUS "STOMACH" SURGERY-PT COMPLIANT WITH SAME. 1130-DR NEW AT [facility] AND SPOKE WITH FAMILY REGARDING STATUS AND TO ADD REGLAN IV TO ASSIST IN MOTILITY-PHYSICAL THERAPY NOTIFIED OF DANGLE AT BEDSIDE AND PROGRESS TO SITTING IN CHAIR ABLE TO WITH EPIDURAL. CHEST TUBE PLACE TO WATER SEAL ORDERED-CONNECTOR TUBE REMOVED 1215-DR SANTIAGO AT [facility] -EPIDURAL ADDRESSED AND CONFIRMED IN PLACE-NOTED INCREASED MOVEMENT TO LEGS AND PT ABLE TO ASSIST WITH BED ROTATION 1330-PHYSICAL THERAPY AT BEDSIDE-PT DANGLED EASILY AND PROGRESSED TO STANDING -ABLE TO STAND FOR COUPLE MINUTES THEN STATED LEGS WEAK AND ASSISTED TO DANGLE AND RETURNED TO SUPINE -CHEST TUBE REMAINS IN PLACE AND SEROUS DRAINAGE A CHAMBER AND NONE POSTERIOR-NO AIR LEAK-EPIDURAL IN PLACE LINEN CHANGE DONE AT THIS TIME-AND PT REPOSITIONED-FAMILY RETURNED TO [facility] 1600NEOSYNEPHRINE TITRATED TO 0.2MCG/MIN-PT ASLEEP NO CHANGES NOTED
--- NOTE | 2018-09-03 16:56 | NUR ---
4912-ASSISTED PT WITH TRAY-REFUSED MEAL AGREED TO CYNTHIA SIU-DENIES NAUSEA AT THIS TIME-ZOFRAN IV GIVEN PREMED
--- NOTE | 2018-09-03 19:02 | NUR ---
REPORT RECEIVED, SHIFT ASSESSMENT COMPLETED PER FLOW SHEET. PATIENT SLEEPING UPON ENTERING ROOM, WOKE UP EASILY TO VERBAL STIMULI. FOLLOWS COMMANDS. MOVES ALL EXTREMITIES. S1 AND S2 NOTED. PPP. RT RADIAL ARTERIAL LINE AND CVP LINE NOTED, ZEROED, WITH GOOD WAVEFORM. FENTANYL EPIDUAL INFUSING AT 5 MLS/HR, DENIES PAIN. LEFT LATERAL CHEST INCISION SITE NOTED,, DRESSING C/D/I. X2 LT LATERAL CT TO WATER SEAL. PATIENT PULLING 1250 ON IS, COUGH STRONG AND NON-PRODUCTIVE. WATER PROVIDED PER PATIENT'S REQUEST, NO DYSPHAGIA. DENIES OTHER NEEDS. CALL LIGHT WITHIN REACH. WILL CONTINUE TO MONITOR. SEE FLOW SHEET FOR COMPLETE ASSESSMENT.
--- NOTE | 2018-09-03 20:39 | NUR ---
PATIENT C/O NAUSEA, PRN ZOFRAN ADMINISTERED, WILL CONTINUE TO MONITOR.
--- NOTE | 2018-09-03 21:04 | NUR ---
PATIENT STATES THAT NAUSEA HAS SUBSIDED, NO OTHER COMPLAINTS. CALL LIGHT WITHIN REACH. WILL CONTINUE TO MONITOR.
--- NOTE | 2018-09-03 23:01 | NUR ---
REASSESSMENT COMPLETED PER FLOW SHEET, SEE FOR DETAILS. WATER WITH ICE PROVIDED. DENIES OTHER NEEDS. NO COMPLAINTS. WILL CONTINUE TO MONITOR.
[2018-09-04] VITALS (13 sets, daily range): BP systolic 87–134; BP diastolic 44–66
--- NOTE | 2018-09-04 01:00 | NUR ---
PATIENT RESTING, NO ACUTE DISTRESS NOTED, WILL CONTINUE TO MONITOR.
--- NOTE | 2018-09-04 03:02 | NUR ---
REASSESSMENT COMPLETED PER FLOW SHEET, SEE FOR DETAILS. DENIES NEEDS AT THIS TIME. WILL CONTINUE TO MONITOR.
--- NOTE | 2018-09-04 05:00 | NUR ---
RESTING, DENIES NEEDS, WILL CONTINUE TO MONITOR.
--- NOTE | 2018-09-04 05:38 | NUR ---
CALL LIGHT ANSWERED, WATER WITH ICE PROVIDED, DENIES OTHER NEEDS. CALL LIGHT WITHIN REACH. WILL CONTINUE TO MONITOR.
[2018-09-04 06:23] LABS: HEMATOCRIT 32.9 % (42.0-54.0); HEMOGLOBIN 10.5 g/dL (13.5-17.5); MCH 29.5 pg (26.0-34.0); MCHC 31.9 g/dL (31.0-37.0); MCV 92.4 fL (80.0-100.0); MEAN PLATELET VOLUME 9.8 fL (7.4-10.4); RBC 3.56 10x6/uL (4.20-6.10); RDW 14.5 % (11.5-14.5)
[2018-09-04 06:35] LABS: ALKALINE PHOSPHATASE 39 U/L (46-116); ALT (SGPT) 16 U/L (10-68); BILIRUBIN - TOTAL 0.59 mg/dL (0.2-1.3); CALC OSMOLALITY 284 mosm/kg (275-300); CALCIUM 7.5 mg/dL (8.5-10.1); CARBON DIOXIDE 27.8 mmol/L (21.0-32.0); CHLORIDE - SERUM 105 mmol/L (98-107); GLUCOSE 122 mg/dL (74-106); POTASSIUM - SERUM 3.8 mmol/L (3.5-5.1); PROTEIN - SERUM 5.6 g/dL (6.4-8.2); SODIUM 140 mmol/L (136-145); UREA NITROGEN 26 mg/dL (7-18); eGFR NON AFRICAN AMERICAN 76 mL/min (90-120)
--- NOTE | 2018-09-04 08:16 | NUR ---
PT INC OF STOOL. BATHED AND LINENS CHANGED. PT COLLEEN WELL. BREAKFAST TRAY SERVED. FAMILY AT BS.
--- NOTE | 2018-09-04 08:57 | NUR ---
Pt is on a regular diet and reports not able to eat at this time due to nausea Pt is able to drink Ensure with no reported problems Ordered Ensure on all trays 4 Ensure per day would provide 80gm protein Discussed the benefits of Ensure and encouraged Ensure while pt not able to eat RD following
--- NOTE | 2018-09-04 10:13 | NUR ---
ASSISTED PT WITH BED CHACON FOR BM REQUESTED BY PT. PT DID HAVE LOOSE STOOL. BATHED AND LINENS CHANGED.
--- NOTE | 2018-09-04 10:14 | NUR ---
Mariela DANGLED PT ON SIDE OF BED. ASSISTED BACK TO BED. FAMILY AT .
--- NOTE | 2018-09-04 11:14 | NUR ---
ART LINE DCD. DSNG APPLIED. NO HEMATOMA OR ACTIVE BLEEDING.
--- NOTE | 2018-09-04 12:06 | NUR ---
MEAL TRAY SERVED. PTS FEEDING PT.
--- NOTE | 2018-09-04 12:32 | MORECARE ---
CASE MANAGEMENT DISCHARGE SUMMARY PATIENT: ELVIA MUNOZ UNIT: [id number] ADM DATE: 09/01/18 AGE: 83 : 35 SEX: M ROOM/BED: [facility] AUTHOR: PIPPA ROYAL PHYSICIAN: REFERRING PHYSICIAN: NILO NEW MD DATE OF SERVICE: 09/04/18 Discharge Plan Patient Name: ELVIA [facility]UN[facility]Z [facility] [facility] 1935 Planned Disposition: Home Anticipated Discharge Date: Discharge Date: Expected LOS: Initial Reviewer: [email or web address] Initial Review Date: 09/01/2018 Generated: 09/04/18 1:32 pm Patient Name: ELVIA MUNOZ Page 33052 at 1232 All edits/amendments must be made on the electronic document DICTATION DATE: 09/04/18 1232 CIRCUIT JUDGE: RELL 09/04/18 1232 RPT#: [id number] MA DATE: STATUS: ADM IN [facility] [address] [place] [address] END OF REPORT
--- NOTE | 2018-09-04 12:39 | MORECARE ---
CASE MANAGEMENT DISCHARGE SUMMARY PATIENT: ELVIA MUNOZ UNIT: [id number] ADM DATE: 09/01/18 AGE: 83 : 35 SEX: M ROOM/BED: [facility] AUTHOR: PIPPA ROYAL PHYSICIAN: REFERRING PHYSICIAN: NILO NEW MD DATE OF SERVICE: 09/04/18 Discharge Plan Patient Name: ELVIA MUNOZ [facility] : 1935 Planned Disposition: Home Anticipated Discharge Date: Discharge Date: Expected LOS: Initial Reviewer: [email or web address] Initial Review Date: 09/01/2018 Generated: 09/04/18 1:39 pm DCPIA - Discharge Planning Initial Assessment Updated by [email or web address]: Jyoti Murcia on 09/04/18 12:34 pm * Is the patient Alert and Oriented? Yes * How many steps to enter\exit or inside your home? * PCP DR. HOOVER IN [place] * Pharmacy [facility] IN [place] * Preadmission Environment Home with Family * ADLs Independent * Other Equipment WALKER, BSC, * List name and contact numbers for known caregivers / representatives who currently or will assist patient after discharge: SANJEEV MUNOZ - SPOUSE- [phone] * Verbal permission to speak to the caregivers and representatives has been obtained from the patient. Yes * Community resources currently utilized None * Additional services required to return to the preadmission environment? No * Can the patient safely return to the preadmission environment? Yes * Has this patient been hospitalized within the prior 30 days at any hospital? No Last DP export: 09/04/18 11:32 Patient Name: ELVIA MUNOZ Page [id number] at 1239 All edits/amendments must be made on the electronic document DICTATION DATE: 09/04/18 1238 BROOMCORN SEEDER: RELL 09/04/18 1238 RPT#: [id number] DC DATE: STATUS: ADM IN [facility] [address] [place] [address] END OF REPORT
--- NOTE | 2018-09-04 12:45 | MORECARE ---
CASE MANAGEMENT DISCHARGE SUMMARY PATIENT: ELVIA MUNOZ UNIT: [id number] ADM DATE: 09/01/18 AGE: 83 : 35 SEX: M ROOM/BED: [facility] AUTHOR: GENNY,DOC PHYSICIAN: REFERRING PHYSICIAN: NILO NEW MD DATE OF SERVICE: 09/04/18 Discharge Plan Patient Name: ELVIA MUNOZ Facility: [facility]:[place] : 1935 Planned Disposition: Home Anticipated Discharge Date: Discharge Date: Expected LOS: Initial Reviewer: [email or web address] Initial Review Date: 09/01/2018 Generated: 09/04/18 1:45 pm Comments DCP- Discharge Planning Updated by [email or web address]: Jyoti Murcia on 09/04/18 11:[address] Patient Name: ELVIA MUNOZ Admission Status: Elective Accout number: [id number] Admission Date: 09-01-2018 : 1935 Admission Diagnosis: Attending: NILO NEW Current LOS: 3 Anticipated DC Date: Planned Disposition: Home Primary Insurance: MEDICARE A & B Discharge Planning Comments: CM met with patient and family at bedside after obtaining verbal consent. Patient plans to return home with family upon discharge. Spouse requested shower chair upon discharge. She also questioned about need for Home Health services upon discharge. Patient may need walk test for Home 02 if still required upon discharge. CM will continue to follow and assist with discharge planning / needs. Control Center Operator: Jyoti Murcia DCPIA - Discharge Planning Initial Assessment Updated by [email or web address]: Jyoti Murcia on 09/04/18 12:34 pm * Is the patient Alert and Oriented? Yes * How many steps to enter\exit or inside your home? * PCP DR. HOOVER IN [place] * Pharmacy [facility] IN [place] * Preadmission Environment Home with Family * ADLs Independent * Other Equipment WALKER, BSC, * List name and contact numbers for known caregivers / representatives who currently or will assist patient after discharge: SANJEEV MUNOZ - SPOUSE- [phone] * Verbal permission to speak to the caregivers and representatives has been obtained from the patient. Yes * Community resources currently utilized None * Additional services required to return to the preadmission environment? No * Can the patient safely return to the preadmission environment? Yes * Has this patient been hospitalized within the prior 30 days at any hospital? No Last DP export: 09/04/18 11:39 Patient Name: ELVIA MUNOZ Page [phone] at 1245 All edits/amendments must be made on the electronic document DICTATION DATE: 09/04/181244 ADMINISTRATIVE ASSISTANT DATA ENTRY: RELL 09/04/18 1245 RPT#: [id number] DC DATE: STATUS: ADM IN [facility] [address] [place] [address] END OF REPORT
--- NOTE | 2018-09-04 12:52 | HP ---
PATIENT: ELVIA MUNOZ MEDICAL RECORD: [id number] ACCOUNT: [id number] LOCATION:[facility].CV05 : 35 ADMISSION DATE: 09/01/18 PCP: RICHA TA MD HISTORY AND PHYSICAL EXAMINATION NameRHINA MUNOZ (83yo, M) ID# [id number]. Date/Time08/22/2018 03:55MMFRO25 1935Service Dept.NP_[facility] ClinicProviderDABENITO NEW MDInsuranceMed Primary: [place]) Insurance # : [id number] Employer Name : RETIRED Prescription: [place]BCBS - Member is eligible. Chief Complaint Followup: Adenocarcinoma of lung Following LLL adenocarcinoma; preop 07/24/18 had LHC w Rajesh (abnormal EKG on [facility] apt 07/21/18) preop for L pulmonary resection Vitals BP:160/90 sitting R arm 08/22/2018 03:18 pmHR:82 08/22/2018 03:18 pmHt:6 ft 2 in 08/22/2018 03:15 pmWt:255 lbs 08/22/2018 03:16 pmBMI:32.7 08/22/2018 03:16 pmAllergies Reviewed Allergies HYDROCODONE: NauseaLATEX, NATURAL RUBBER: Rashknee replacementMedications Reviewed Medications [facility] mg mhwigs93/07/18 filledPRIMEclopidogrel 75 mg yfchxz85/19/18 filledPRIMEmetoprolol succinate ER 100 mg tablet,extended release 24 hr07/30/18 filledPRIMEPreserVision AREDS07/18/18 [facility]-hydrochlorothiazide 12.5 mg wlcuoq50/21/18 filledPRIMEProblems Reviewed Problems 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 HPI Lungs/Pleura Mass or Nodule Reported by patient. Symptoms: coughing; history of skin cancer poorly differentiated adenocarcinoma discovered approximately 2 months ago. Negative PET, negative EBUS former smoker, asymptomatic No coronary history s/p PCI, assym bx + lung ca ROS ROS as noted in the HPI Physical Exam Patient is an 83-year-old male. Constitutional: General Appearance well nourished and developed and healthy-appearing. Level of Distress NAD. Ambulation ambulating normally. Cardiovascular: Apical Impulse not displaced. Heart Auscultation RRR and no murmurs. Edema no edema. Lungs: Repiratory Effort no dyspnea. Auscultation no wheezing, rhonchi, or rales / crackles and breathing sounds normal and good air movement. Abdomen: Inspection and Palpation soft, non-distended, and no tenderness. Ears, Nose, Throat: Hearing grossly normal hearing. Oropharynx: moist mucous membranes. Musculoskeletal System: Gait And Stance normal gait and stance. Joints, Bones, and Muscles normal strength and movement of all extremities. Neurologic: Cranial Nerves grossly intact. Sensation grossly intact. Lymph Nodes: Lymph Nodes no cervical LAD or supraclavicular LAD. Eyes: Lids and Conjunctivae non-injected. Pupils PERRLA. EOM EOMI. Sclerae non-icteric. Neck: Neck no enlarged lymph nodes. Thyroid no enlargement. Skin: Inspection and Palpation no rash, lesions, ulcers, or jaundice. Assessment / Plan 1. Adenocarcinoma of lung - Left C34.90: Malignant neoplasm of unspecified part of unspecified bronchus or lung Patient Instructions stop Plavix tomorrow when done Discussion Notes we discussed the rationale for surgery, recovery, and risks. He gives consent. HISTORY AND PHYSICAL [id number] ELVIA MUNOZ Thoracotomy August 31 with lobectomy Return to Office None recorded. NILO NEW MD at 1252 CC: [id number] DICTATION DATE: 08/22/18 1500 WAREHOUSE ENGINEER: DM 09/04/18 1134 ADM IN [facility] [address] [place] [address]
--- NOTE | 2018-09-04 13:31 | NUR ---
DR DODGE HERE FOR EPIDURAL CHECK.
--- NOTE | 2018-09-04 14:36 | NUR ---
PT ASKING FOR BED CHACON. PT HAD MODERATE AMT LOOSE BROWN STOOL. BATHED AND LINENS CHANGED.
--- NOTE | 2018-09-04 17:14 | NUR ---
ANTERIOR COLLECTION CHAMBER L CHEST TUBE FULL. CT CANNISTER CHANGE OUT COMPLETE PER STERAL TECH.
--- NOTE | 2018-09-04 19:07 | NUR ---
BEDSIDE SHIFT REPORT GIVEN BY DEPARTING RN. PT LAYING IN BED WITH EYES CLOSED. AAOX4. PERRLA. DENIES ANY PAIN AT THIS TIME. NO SS OF DISTRESS NOTED. ASSESSMENT COMPLETE AT THIS TIME. TWO LEFT LATERAL CHEST TUBES NOTED TO BE WATER SEAL. SMALL LEAK NOTED. F/C DRAINING TO GRAVITY WITH DARK BLOODY URINE COMPLETE WITH BLOOD CLOTS IN TUBING. LINE APPEARS TO BE PATENT. SAFETY MEASURES IN PLACE. CBIR. WILL CONTINUE TO MONITOR.
--- NOTE | 2018-09-04 21:09 | NUR ---
BED CHACON IN USE. 1 LIQUID BROWN BM NOTED.
--- NOTE | 2018-09-04 21:28 | NUR ---
PT COUGHING AND GAGGING. EMESIS BAG GIVEN. PRN NAUSEA MEDICATION GIVEN. SEE MAR FOR DETAILS. SMALL AMOUNT OF SPUTUM IN EMESIS BAG.
--- NOTE | 2018-09-04 21:37 | NUR ---
PHONED DR. ENW REGARDING ELEVATED HR. CURRENT HR 114. ORDERED TO DC LASIX, GIVE 40 MEQ KCL ONE TIME DOSE, AND TO CALL IF HR BECOMES IRREGULAR. ORDERS VERIFIED AND READ BACK. WILL CONTINUE TO MONITOR.
--- NOTE | 2018-09-04 23:39 | NUR ---
USED CALL LIGHT TO ALERT NURSE. BED CHACON IN USE. LIQUID BROWN STOOL NOTED.
--- NOTE | 2018-09-04 23:40 | NUR ---
REASSESSMENT COMPLETE. NO NEW CHANGES TO NOTE.
[2018-09-05] VITALS (23 sets, daily range): BP systolic 107–176; BP diastolic 62–93
--- NOTE | 2018-09-05 07:25 | NUR ---
SHIFT REPORT RECEIVED. PT WITH EYES CLOSED. AROUSES TO VOICE. HAVING SOME NAUSEA. ZOFRAN 4MG IV GIVEN FOR NAUSEA PER ORDERS. ON 4L OF O2 VIA NC. O2 SAT 97%. HAS LIJ WITH PLAMOLYTE AT 30ML/HR. CT X 2 L-LATERAL SIDE TO [address] SITE CDI. EPIDURAL WITH FENTANYL IN PLACE. PT DENIES HAVING PAIN AT THIS TIME. SOLITARIO IN PLACE WITH DARK URINE NOTED. TEMP 100 DEGREES AT THIS TIME. SCD'S ON BOTH LE. HAS PIV ON RIGHT AC SL. SHIFT ASSESSMENT COMPLETED. SAFETY MEASURES IN PLACE. NO FURTHER NEEDS AT THIS TIME. WILL CONTINUE TO MONITOR.
[2018-09-05 08:05] LABS: BASOPHILS 0.1 % (0-2); EOSINOPHILS 2.1 % (0-7); HEMATOCRIT 34.5 % (42.0-54.0); HEMOGLOBIN 11.1 g/dL (13.5-17.5); IMMATURE GRANULOCYTES 0.4 % (0-5); LYMPHOCYTES 14.6 % (15-50); MCH 29.7 pg (26.0-34.0); MCHC 32.2 g/dL (31.0-37.0); MCV 92.2 fL (80.0-100.0); MEAN PLATELET VOLUME 9.6 fL (7.4-10.4); MONOCYTES 8.6 % (2-11); NEUTROPHILS 74.2 % (40-80); PLATELET COUNT 139 10x3/uL (130-400); RBC 3.74 10x6/uL (4.20-6.10); RDW 14.2 % (11.5-14.5)
[2018-09-05 08:14] LABS: ALKALINE PHOSPHATASE 43 U/L (46-116); ALT (SGPT) 20 U/L (10-68); CALC OSMOLALITY 285 mosm/kg (275-300); CALCIUM 7.9 mg/dL (8.5-10.1); CARBON DIOXIDE 30.2 mmol/L (21.0-32.0); CHLORIDE - SERUM 104 mmol/L (98-107); CREATININE - SERUM 0.9 mg/dL (0.6-1.3); GLUCOSE 124 mg/dL (74-106); POTASSIUM - SERUM 3.2 mmol/L (3.5-5.1); PROTEIN - SERUM 5.9 g/dL (6.4-8.2); SODIUM 141 mmol/L (136-145); UREA NITROGEN 25 mg/dL (7-18); eGFR NON AFRICAN AMERICAN 85 mL/min (90-120)
--- NOTE | 2018-09-05 09:38 | NUR ---
SPOKE WITH DR. NEW REGARDING POTASSIUM LEVEL BEING 3.2. AND PT NOT BEING ABLE TO REST WELL AT NIGHT. ORDERED 40MEQ KCL RIDER. ORDERED 25MG BENADRIL IV FOR INSOMNIA PRN HS.
--- NOTE | 2018-09-05 11:36 | NUR ---
CT REMOVED TODAY BY DR. NEW. EPIDURAL REMOVED BY DR. CROWDER. R-AC PIV REMOVED WITH CATHETER TIP INTACT. 20G PIV INSERTED ON LEFT FOREARM X 1 ATTEMPT. PT PULLED UP AND REPOSITIONED FOR COMFORT. WILL CONTINUE TO MONITOR. KCL INSUFING AT THIS TIME. WILL DC CVL WHEN KCL IS FINISHED INFUSING.
--- NOTE | 2018-09-05 12:25 | NUR ---
PLASMOLYTE HAS BEEN DC'S ORDERED. CVL REMOVED AT THIS TIME WITH CATHETER TIP INTACT. INSTRUCTED PATIENT TO REMAIN ON HIS BACK WITHOUT STRAINING FOR ABOUT 30 MINUTES. FAMILY AT BEDSIDE. PT REPORTS NAUSEA TO BE BETTER. COMMUNITY ENGAGEMENT REPRESENTATIVE SHOWED OCCASIONAL PVC'S. WILL CONTINUE TO MONITOR.
--- NOTE | 2018-09-05 13:15 | NUR ---
TRANSFERRED TO CHAIR BY PHYCICAL THERAPY.
--- NOTE | 2018-09-05 13:31 | NUR ---
ASSITED PT ONTO BEDSIDE COMODE. NOTED ABOUT 300ML OF BROWN LIQUID STOOL. PT TRANSFERRED BACK TO CHAIR. COMPLETE BED LINEN CHANGE PROVIDED. PT REFUSED BATH AT THIS TIME. HE SAID MAYBE AFTER DINNER. FAMILY AT BESIDE. NO FURTHER NEEDS AT THIS TIME. WILL CONTINUE TO MONITOR.
--- NOTE | 2018-09-05 13:57 | NUR ---
SITTING IN CHAIR. COMPLAINING OF SLIGHT NAUSEA. ZOFRAN 4MG IV GIVEN. ENCOURAGED PT TO SIT IN CHAIR LONG POSSIBLE. ENCOURAGED IS EXERCISES. BEST EFFOR 1500. TEMP 98.2 AT THIS TIME. NO FURTHER NEEDS. WILL CONTINUE TO MONITOR.
--- NOTE | 2018-09-05 14:44 | NUR ---
ASSISTED TO BEDSIDE COMMODE. SCANT AMOUNT OF LOOSE STOOL NOTED. MOSTLY PASSED GAS AT THIS TIME. ABDOMEN CONTINUES DISTENDED AND FIRM. PT DENIES HAVING PAIN AT THIS TIME. ZOFRAN EASED NAUSEA. NO FURTHER NEEDS. WILL CONTINUE TO MONITOR.
--- NOTE | 2018-09-05 16:15 | NUR ---
PT REPORTS DISCOMFORT ON ABDOMEN. STATES THAT HIS BELLY IS TIGHTTER THAN USUAL. HAS BEEN PASSING GAS AND HAS HAD ON LARGE BM. SITTING UP IN CHAIR.
--- NOTE | 2018-09-05 16:52 | NUR ---
REPORTED TO DR. NEW THAT PT WAS STILL HAVING NAUSEA. ZOFRAN DOESN'T REALLY HELP MUCH. ALSO THAT HIS ABDOMEN IS MORE DISTENDED AND TIGHTER THAN NORMAL. HE ORDER FOR REGLAN TO BE RE-STARTED, CLEAR LIQUID DIET AND KUB WITH CXRAY IN AM. REGLAN GIVEN ORDERED. FAMILY AT BEDSIDE. WAITING ON CLEAR LIQUID TRAY. NO FURTHER NEEDS AT THIS TIME.
--- NOTE | 2018-09-05 17:29 | NUR ---
ASSISTED UP TO BEDSIDE COMODE. SMALL AMOUNT OF YELLOW/BROWN LIQUID STOOL NOTED AT THIS TIME. PASSED LOTS OF GAS. TACHYCARDIC AT THIS TIME. HR BETWEEN 117-120. ORAL TEMPERATURE 98.3. SOLITARIO CATH TEMP 100.9.
--- NOTE | 2018-09-05 17:50 | NUR ---
DR. NEW NOTIFIED OF TACHYCARDIA IN 120S AND SBP IN 170S. ORDERED 25MG LOPRESSOR PO NOW AND 25MG LOPRESSOR BID.
--- NOTE | 2018-09-05 18:14 | NUR ---
TRANSFERRED PT BACK TO BED. HR 115-120S. ON 4L OF O2 VIA NC. 96% O2 SAT. SBP 161. LOPRESSOR 25MG TAB GIVEN PER ORDERS. WILL CONTINUE TO MONITOR.
[2018-09-05 19:26] LABS: MAGNESIUM - SERUM 2.1 mg/dL (1.8-2.4); POTASSIUM - SERUM 3.5 mmol/L (3.5-5.1)
--- NOTE | 2018-09-05 20:39 | NUR ---
1899 REPORT RECEIVED CARE ASSUMED. PT SINUS TACH ON MONITOR RATE OF 120S. PT NAUSEATED. PREVOUS VOMIT ON BED. POSSIBLE PILL REMINANTS IN VOMIT. ASSESSMENT DONE SEE FLOW SHEET. PARTIAL BED BATH AND COMPLETE LINEN CHANGE PROVIDED. INCREASE IN BP NOTED. 2015 MED GIVEN PER NOV. HR 130S. HEMO STABLE AT THIS TIME. WILL CONTINUE TO MONITOR.
--- NOTE | 2018-09-05 21:30 | NUR ---
2106 DR NEW INFORMED OF PT STATUS. ORDERS RECEIVED SEE NOV. VSS WILL CONINTUE TO MONITOR. 2129 MED GIVEN PER MAR HR GREATER THAN 110.
--- NOTE | 2018-09-05 21:57 | NUR ---
PT CONSTANTLY TURNING AND PULLING COVERS. R WRIST 20G PIV STARTED FLUSHES WITH BLOOD RETURN. TAPED IN PLACE.
--- NOTE | 2018-09-05 22:27 | NUR ---
PT PULLING AT LINES REFUSES TO HAVE BP TAKEN. CALLED TO CALM PT. PT WANTING OUT OF HOSPITAL AND TO GO HOME. VSS. FAMILY ABLE TO CALM PT. WILL CONTINUE TO MONITOR.
--- NOTE | 2018-09-05 23:00 | NUR ---
REASSESSMENT DONE SEE FLOW SHEET. PT IN BD PULLING AT LINES. WHEN ENTERING ROOM PT PULLING AT SOLITARIO CATHETER. PT WANTING OUT OF BED AND TRYING TO GO HOME. SOLITARIO HAS BLOODY DRAINAGE AROUND ENTRY SITE. SOLITARIO FLUSHED. WILL CONITNUE TO MONITOR.
[2018-09-06] VITALS (22 sets, daily range): BP systolic 97–166; BP diastolic 51–97; Ht 188 cm; Wt 110.1 kg
--- NOTE | 2018-09-06 01:00 | NUR ---
PT CONSTANTLY PULLING AT LINES AND TRIES TO TAKE APART CATHETER. REQUIRES CONSTANT REORIENTATION. VSS. WILL CONTINUE TO MONITOR.
--- NOTE | 2018-09-06 01:00 | NUR ---
PT RESTING IN CHAIR COMFORTABLEY VSS. NO SIGNS OF ACUTE DISTRESS NOTED. WILL CONTINUE TO MONITOR.
--- NOTE | 2018-09-06 03:00 | NUR ---
REASSESSMENT DONE SEE FLOW SHEET. VSS. PT INCREASINGLY AGGITATED PULLING AT LINES. REQUIRES CONSTANT REORIENTATION.
--- NOTE | 2018-09-06 05:08 | NUR ---
0445 PT BACK TO FLOOR FROM PA AND LATERAL. PT AMBULATED WITH MAXIMAL ASSISTANCE FOR PA AND LAT & KUB. HR 120-130. PT STATES HE IS DIZZY WHEN STANDING. PT NAUSEATED WHEN STANDING. MED GIVEN PER NOV. VSS. PT SITS IN CHAIR WITH MAXIMAL EFFORT. VSS. WILL CONTINUE TO MONITOR.
--- NOTE | 2018-09-06 06:50 | NUR ---
PT SITTING UP IN CHAIR PULLED OUT R WRIST PIV. CATHETER TIP INTACT. VSS. WILL CONTINUE TO MONITOR.
[2018-09-06 07:13] LABS: BASOPHILS 0.1 % (0-2); EOSINOPHILS 0 % (0-7); IMMATURE GRANULOCYTES 0.9 % (0-5); LYMPHOCYTES 9.4 % (15-50); MCH 30.6 pg (26.0-34.0); MCHC 33.7 g/dL (31.0-37.0); MCV 90.6 fL (80.0-100.0); MEAN PLATELET VOLUME 9.9 fL (7.4-10.4); MONOCYTES 11.9 % (2-11); NEUTROPHILS 77.7 % (40-80); RDW 14.2 % (11.5-14.5)
[2018-09-06 07:16] LABS: HEMATOCRIT 41.5 % (42.0-54.0); PLATELET COUNT 229 10x3/uL (130-400); RBC 4.58 10x6/uL (4.20-6.10); WBC 8.9 10x3/uL (4.8-10.8)
--- NOTE | 2018-09-06 07:27 | NUR ---
SHIFT REPORT RECEIVED. UP IN CHAIR. SLIGHTLY CONFUSED TO TIME AND PLACE. DENIES PAIN AT THIS TIME. HAS 20 PIV ON L-FOREARM SL. INCISION ON LATERAL BACK SIDE DIGESTER. BRENDAN APPROXIMATED NO SIGNS OF INFECTION NOTED. DRESSING OVER INCISION FROM PREVIOUS CT. SOLITARIO IN PLACE WITH BLOODY URINE. ON 4L OF O2 VIA NC. 93% O2 SAT. HR ABOVE 110. IS BEST EFFORT 1500. SHIFT ASSESSMENT COMPLETED. SAFETY MEASURES IN PLACE. WILL CONTINUE TO MONITOR.
[2018-09-06 07:34] LABS: ALBUMIN 2.5 g/dL (3.4-5.0); ANION GAP 15.1 mmol/L (8-16); BILIRUBIN - TOTAL 0.78 mg/dL (0.2-1.3); CALCIUM 8.9 mg/dL (8.5-10.1); CARBON DIOXIDE 26.6 mmol/L (21.0-32.0); MAGNESIUM - SERUM 2.2 mg/dL (1.8-2.4); POTASSIUM - SERUM 3.7 mmol/L (3.5-5.1); PROTEIN - SERUM 6.8 g/dL (6.4-8.2)
[2018-09-06 07:35] LABS: CREATININE - SERUM 1.2 mg/dL (0.6-1.3)
--- NOTE | 2018-09-06 08:18 | NUR ---
HR ABOVE 110. LOPRESSOR GIVEN PER ORDERS. PT UP IN CHAIR. FAMILY AT BEDSIDE. WILL CONTINUE TO MONITOR.
--- NOTE | 2018-09-06 09:00 | NUR ---
AMBULATED WITH PHYSICAL THERAPY ABOUT 60FT. HR 107 AT THIS TIME. RESTING IN CHAIR. NOTIFIED DR. NEW OF KUB FINDINGS BEING CONSITENT WITH ILEUS. WILL KEEP PT NPO WITH ONLY ICE CHIPS PER DR. NEW'S ORDERS. PT HAD SMALL LIQUID STOOL ABOUT 50CC. NO FURTHER NEEDS AT THIS TIME. WILL CONTINUE TO MONITOR.
--- NOTE | 2018-09-06 09:32 | NUR ---
CONSULTED WITH DYLON NEW'S NURSE REGARDING PO MEDICATIONS. SHE WILL GET WITH DR. NEW WHEN HE IS OUT OF THE OR AND GET BACK WITH ME.
--- NOTE | 2018-09-06 10:20 | NUR ---
PT IN CHAIR. BEST EFFORT ON IS AT THIS TIME WAS 1000. HR 106. 02 SAT 96%. NO FURTHER NEEDS. WILL CONTINUE TO MONITOR.
--- NOTE | 2018-09-06 10:33 | NUR ---
DR. NEW ORDERED TO KEEP PT NPO INCLUDING PO MEDS. CHANGE PO MEDS TO IV MEDS IF POSSIBLE. AT THIS TIME. PT HAS ASPIRIN, PLAVIX, AND K-DUR PO MEDICATIONS THAT CANNOT BE CHANGED TO IV. DYLON WILL CHECK WITH DR. NEW TO SEE WHAT HE WANTS DONE REGARDING THESE MEDICATIONS. PT HAS IV LOPRESSOR PRN FOR BP AND HR. DR. NEW ALSO WANTS PT AMBULATING MUCH POSSIBLE. NO FURTHER NEEDS AT THIS TIME. WILL CONTINUE TO MONITOR.
--- NOTE | 2018-09-06 11:34 | NUR ---
RE-ASSESSMENT COMPLETED. NOT CHANGES FROM PREVIOUS ASSESSMENT. IS BEST EFFORT 1250. SITTING UP IN CHAIR. HR 110. ORAL TEMP 98.1. NO FURTHER NEEDS. WILL CONTINUE TO MONITOR.
--- NOTE | 2018-09-06 11:55 | NUR ---
IV LOPRESSOR GIVEN AT THIS TIME. PT RESTING IN CHAIR. WILL CONTINUE TO MONITOR.
--- NOTE | 2018-09-06 13:53 | NUR ---
PT AMBULATED ABOUT 100FT WITH PHYSICAL THERAPY. IS BEST EFFOR BETWEEN 1000 AND 1250. URINE IN SOLITARIO BLOODY. HAS PUT OUT ABOUT 300ML OF URINE TODAY. NO OTHER NEEDS AT THIS TIME. WILL CONTINUE TO MONITOR.
--- NOTE | 2018-09-06 15:37 | NUR ---
RE-ASSESSMENT COMPLETED. ORAL TEMP 98.0. HR 91 AT THIS TIME. 02 SAT 95%. BP IN 140S. PT RESTING COMFORTABLY IN CHAIR. WILL CONTINUE TO MONITOR.
--- NOTE | 2018-09-06 18:00 | NUR ---
RESTING IN CHAIR. BEST IS EFFORT 1500. DENIES PAIN. NO FURTHER NEEDS AT THIS TIME. WILL CONTINUE TO MONITOR.
--- NOTE | 2018-09-06 19:42 | NUR ---
BACK IN BED FROM BSC WITH HELP FROM SECOND RN. STANDBY ASSIST USING WALKER. TOLERATED WELL. ONE LIQUID BROWN BM NOTED.
--- NOTE | 2018-09-06 21:44 | NUR ---
LAYING IN BED ASLEEP. SHOWING NO SS OF DISTRESS. REPOSITIONS SELF. WILL CONTINUE TO MONITOR.
--- NOTE | 2018-09-06 23:28 | NUR ---
REASSESSMENT COMPLETE AT THIS TIME. PT LAYING IN BED ASLEEP SHOWING NO SS OF DISTRESS, VSS. REPOSITIONS SELF. DENIES PAIN.
[2018-09-07] VITALS (22 sets, daily range): BP systolic 101–151; BP diastolic 45–89
--- NOTE | 2018-09-07 01:07 | NUR ---
REPORT RECEIVED, PATIENT CALM AND COOPERATIVE, NO ACUTE DISTRESS NOTED. FOLLOWING COMMANDS. X1 LIQUID BROWN BM NOTED, PATIENT CLEANED AND REPOSITIONED IN BED. DENIES NEEDS. CALL LIGHT WITHIN REACH. WILL CONTINUE TO MONITOR.
--- NOTE | 2018-09-07 02:51 | NUR ---
SCHEDULED MEDS GIVEN, PATIENT AWAKE, CALM AND COOPERATIVE. BP 114/68. MAP 83. HR 98 SINUS RHYTHM WITH OCCASIONAL PVC'S.
--- NOTE | 2018-09-07 03:17 | NUR ---
REASSESSMENT COMPLETED PER FLOW SHEET, SEE FOR DETAILS. PATIENT CONFUSED, REORIENTATION PROVIDED. CALM AND COOPERATIVE. DENIES NEEDS. WILL CONTINUE TO MONITOR.
--- NOTE | 2018-09-07 04:18 | NUR ---
FIANCE AT BEDSIDE, NO COMPLAINTS. WILL CONTINUE TO MONITOR.
--- NOTE | 2018-09-07 05:02 | NUR ---
RESTING, NO ACUTE DISTRESS NOTED, VSS, WILL CONTINUE TO MONITOR.
[2018-09-07 05:22] LABS: BASOPHILS 0.2 % (0-2); EOSINOPHILS 1.1 % (0-7); HEMATOCRIT 35.8 % (42.0-54.0); HEMOGLOBIN 11.8 g/dL (13.5-17.5); IMMATURE GRANULOCYTES 0.7 % (0-5); MCH 29.9 pg (26.0-34.0); MCV 90.6 fL (80.0-100.0); MEAN PLATELET VOLUME 10.3 fL (7.4-10.4); MONOCYTES 12.1 % (2-11); NEUTROPHILS 68.9 % (40-80); PLATELET COUNT 220 10x3/uL (130-400); RBC 3.95 10x6/uL (4.20-6.10); RDW 14.3 % (11.5-14.5)
[2018-09-07 05:39] LABS: CALCIUM 8.3 mg/dL (8.5-10.1); CARBON DIOXIDE 29.9 mmol/L (21.0-32.0); CREATININE - SERUM 1.2 mg/dL (0.6-1.3)
[2018-09-07 05:40] LABS: POTASSIUM - SERUM 2.9 mmol/L (3.5-5.1)
--- NOTE | 2018-09-07 07:54 | NUR ---
DR NEW IN UNIT NOTIFIED OF K LEVEL, ORDERS FOR 20MEQ IN 250ML OVER 4 HOURS, MAY ATTEMPT SIPS OF WATER AND JELLO TOLERATED
--- NOTE | 2018-09-07 09:11 | NUR ---
0700 PT RECEIEVED ALERT AND ORIENTED, VSS DENIES PAIN O2 4L NC,L CHEST INCISION SITE OPEN TO AIR WITH BRENDAN WELL APPROXIMATED, LFA PIV SALINE LOCKED DRESSING CDI, FLUSHED AND PATENT, SOLITARIO DRAINING CONCENTRATED URINE, ASSISTED TO CHAIR WITH ANOTHER NURSE 0900AMBULATED WITH THERAPY THEN ASSISTED TO BSC, LARGE LIQUID STOOL, ASSISTED BACK TO CHAIR, GIVEN JELLO AND TOELRATED WELL
--- NOTE | 2018-09-07 15:09 | NUR ---
DR NEW IN UNIT ORDERS FOR 25 LOPRESSOR NOW AND BID. CALLED DR MATTA NURSE EFRAIN WITH K RESULTS, ORDERS FOR 20MEQ KCL
--- NOTE | 2018-09-07 16:57 | NUR ---
1100 PT GIVEN ANOTHER JELLO, TOLERATED WELL WITH SIPS OF WATER 1300 DENIES ANY NAUSEA OR ABD DISCOMFORT, AMBULATED WITH PT 1645 ATE 100% DINNER, DENIES ALL NAUSEA OR NEEDS, FAMILY HERE FOR VISITATION
--- NOTE | 2018-09-07 19:08 | NUR ---
REPORT RECEIVED, SHIFT ASSESSMENT COMPLETED PER FLOW SHEET. ASSISSTED PATIENT BACK IN BED FROM BEDSIDE COMMODE, LARGE LIQUID BROWN BM NOTED, PATIENT CLEANED. REPOSITIONED IN BED. LT FOREARM PIV PATENT, SALINE LOCKED, NO SIGNS OF INFECTION OR INFILTRATION. WATER WITH ICE PROVIDED. DENIES OTHER NEEDS. SEE FLOW SHEET FOR COMPLETE ASSESSMENT. WILL CONTINUE TO MONITOR. CALL LIGHT WITHIN REACH.
--- NOTE | 2018-09-07 20:04 | NUR ---
USE OF IS ENCOURAGED AND COUGH/DEEP BREATHING. PATIENT PULLING 1750 X10 ON IS, COUGH STRONG AND NON-PRODUCTIVE. DENIES NEEDS. CALL LIGHT WITHIN REACH.
--- NOTE | 2018-09-07 21:14 | NUR ---
PATIENT C/O NAUSEA, PRN ZOFRAN GIVEN. SCHEDULED MEDS GIVEN, WATER WITH ICE PROVIDED, TOLERATED WELL. NO OTHER COMPLAINTS. CALL LIGHT WITHIN REACH. WILL CONTINUE TO MONITOR.
--- NOTE | 2018-09-07 22:50 | NUR ---
PATIENT STATES "I FEEL WET" LIQUID BM NOTED, PATIENT CLEANED, AND REPOSITIONED IN BED. DENIES OTHER NEEDS. CALL LIGHT WITHIN REACH. WILL CONTINUE TO MONITOR.
--- NOTE | 2018-09-07 23:09 | NUR ---
REASSESSMENT COMPLETED PER FLOW SHEET, SEE FOR DETAILS. PATIENT PULLING 1750 X10 ON IS, COUGH STRONG AND NON-PRODUCTIVE. DENIES NEEDS. WILL CONTINUE TO MONITOR.
[2018-09-08] VITALS (15 sets, daily range): BP systolic 119–153; BP diastolic 62–83
--- NOTE | 2018-09-08 01:00 | NUR ---
PATIENT INCONTINENT OF SMALL BROWN BM, CLEANED AND REPOSITIONED IN BED. DENIES OTHER NEEDS. CALL LIGHT WITHIN REACH. WILL CONTINUE TO MONITOR.
--- NOTE | 2018-09-08 03:17 | NUR ---
REASSESSMENT COMPLETED PER FLOW SHEET, SEE FOR DETAILS. WATER WITH ICE PROVIDED. NO ACUTE CHANGES NOTED. REPOSITIONED IN BED. CALL LIGHT WITHIN REACH. WILL CONTINUE TO MONITOR.
--- NOTE | 2018-09-08 05:00 | NUR ---
INCONTINENT OF LIQUID BROWN BM. COMPLETE BED BATH GIVEN WITH SOAP AND WATER. COMPLETE BED LINEN CHANGE PROVIDED. SOLITARIO CATHETER CARE PROVIDED WITH SOAP AND WATER. CLEAN HOSPITAL GOWN PROVIDED. REPOSITIONED IN BED. WATER PROVIDED. DENIES OTHER NEEDS. CALL LIGHT WITHIN REACH. WILL CONTINUE TO MONITOR.
--- NOTE | 2018-09-08 09:42 | NUR ---
0700 PT RECIEVED IN BED, ASSISTED TO CHAIR, O2 2L NC, VSS, DENIES PAIN, SOLITARIO DRAINING DARK URINE, SEE SHIFT ASSESSMENT FOR DETAILS 0900 TOOK AM MEDS AND ATE 50% BREAKFAST WITHOUT DIFFICULTY
--- NOTE | 2018-09-08 10:07 | NUR ---
NUTRITION F/U PT UP IN CHAIR. PER NURSING PT IS TOLERATING REG SOFT DIET. NOTE POSSIBLE DC TODAY. RD FOLLOWING
--- NOTE | 2018-09-08 13:56 | NUR ---
1030 SOLITARIO REMOVED TIP INTACT, FOLLOWED BY SMALL AMOUNT OF URINATION. 1330 ENCOURAGED PT TO ATTEMPT TO VOID AFTER 400ML WATER DRANK, UNABLE TO GO, NOTIFIED DR MATTA NURSE EFRAIN, SCANNED BLADDER WITH 92ML NOTED, NOTIFIED EFRAIN THEN DR NEW IN UNIT AND NOTIFIED WITH NO NEW ORDERS
[2018-09-08] MEDS ORDERED: LOPRESSOR25 MG PO (14:09)
[2018-09-08] MEDS ORDERED: PLAVIX75 MG PO (14:09)
--- NOTE | 2018-09-08 14:54 | NUR ---
DISCHARGE INSTRUCTIONS PROVIDED TO , PT AND SON. PT REQUESTED SIGN PAPERS. NEW MEDICATIONS E-SCRIBED TO [facility]. INSTRUCTED TO STOP TAKING METOPROLOL XL AND VALSARTAN. PIV TO LEFT FOREARM REMOVED, TIP INTACT.
--- NOTE | 2018-09-08 14:58 | NUR ---
PT ASSISTED TO CAR WITH AND SON
--- NOTE | 2018-09-08 17:37 | MORECARE ---
CASE MANAGEMENT DISCHARGE SUMMARY PATIENT: ELVIA MUNOZ UNIT: [id number] ADM DATE: 09/01/18 AGE: 83 : 35 SEX: M ROOM/BED: D[facility] AUTHOR: GENNY,DOC PHYSICIAN: REFERRING PHYSICIAN: NILO NEW MD DATE OF SERVICE: 09/08/18 Discharge Plan Patient Name: ELVIA MUNOZ Facility: [facility]:[place] : 1935 Planned Disposition: Home Anticipated Discharge Date: Discharge Date: 09/08/2018 Expected LOS: Initial Reviewer: [email or web address] Initial Review Date: 09/01/2018 Generated: 09/08/18 6:36 pm Comments DCP- Discharge Planning Updated by [email or web address]: Jyoti Murcia on 09/04/18 11:[address] Patient Name: ELVIA MUNOZ Admission Status: Elective Accout number: [id number] Admission Date: 09-01-2018 : 1935 Admission Diagnosis: Attending: NILO NEW Current LOS: 3 Anticipated DC Date: Planned Disposition: Home Primary Insurance: MEDICARE A & B Discharge Planning Comments: CM met with patient and family at bedside after obtaining verbal consent. Patient plans to return home with family upon discharge. Spouse requested shower chair upon discharge. She also questioned about need for Home Health services upon discharge. Patient may need walk test for Home 02 if still required upon discharge. CM will continue to follow and assist with discharge planning / needs. Senior Property Accountant: Jyoti Murcia DCPIA - Discharge Planning Initial Assessment Updated by [email or web address]: Jyoti Murcia on 09/04/18 12:34 pm * Is the patient Alert and Oriented? Yes * How many steps to enter\exit or inside your home? * PCP DR. HOOVER IN [place] * Pharmacy [facility] IN [place] * Preadmission Environment Home with Family * ADLs Independent * Other Equipment WALKER, BSC, * List name and contact numbers for known caregivers / representatives who currently or will assist patient after discharge: SANJEEV MUNOZ - SPOUSE- [phone] * Verbal permission to speak to the caregivers and representatives has been obtained from the patient. Yes * Community resources currently utilized None * Additional services required to return to the preadmission environment? No * Can the patient safely return to the preadmission environment? Yes * Has this patient been hospitalized within the prior 30 days at any hospital? No Last DP export: 09/04/18 11:45 Patient Name: ELVIA MUNOZ Page [id number] at 1737 All edits/amendments must be made on the electronic document DICTATION DATE: 09/08/181735 BODY CARE MANAGER: RELL 09/08/181735 RPT#: [id number] DC DATE:09/08/18 STATUS: DIS IN [facility] [address] [place] [address] END OF REPORT
--- NOTE | 2018-09-11 10:49 | MORECARE ---
CASE MANAGEMENT DISCHARGE SUMMARY PATIENT: ELVIA MUNOZ UNIT: [id number] ADM DATE: 09/01/18 AGE: 83 : 35 SEX: M ROOM/BED: D.[facility] AUTHOR: PIPPA ROYAL PHYSICIAN: REFERRING PHYSICIAN: NILO NEW MD DATE OF SERVICE: 09/11/18 Discharge Plan Patient Name: ELVIA MUNOZ Facility: [facility]:[place] : 1935 Planned Disposition: Home Anticipated Discharge Date: Discharge Date: 09/08/2018 Expected LOS: Initial Reviewer: [email or web address] Initial Review Date: 09/01/2018 Generated: 09/11/18 11:49 am Comments DCP- Discharge Planning Updated by [email or web address]: Jyoti Murcia on 09/11/18 9:[address] LATE ENTRY 09/08/18 @ 1000 Patient Name: ELVIA MUNOZ Encounter No: [id number] : 1935 Primary Insurance: MEDICARE A & B Anticipated DC Date: Planned Disposition: Home External Planned Provider: : DCP follow-up note: Patient and family in agreement with discharge plan. No changes to plan. Case management will follow and assist as needed. IMM explained and served 09/08/18 @ 0959 Jyoti Murcia DCP- Discharge Planning Updated by [id number]: Jyoti Murcia on 09/04/18 11:[address] Patient Name: ELVIA MUNOZ Admission Status: Elective Accout number: [id number] Admission Date: 09-01-2018 : 1935 Admission Diagnosis: Attending: NILO NEW Current LOS: 3 Anticipated DC Date: Planned Disposition: Home Primary Insurance: MEDICARE A & B Discharge Planning Comments: CM met with patient and family at bedside after obtaining verbal consent. Patient plans to return home with family upon discharge. Spouse requested shower chair upon discharge. She also questioned about need for Home Health services upon discharge. Patient may need walk test for Home 02 if still required upon discharge. CM will continue to follow and assist with discharge planning / needs. Pilates Instructor: Jyoti Murcia DCPIA - Discharge Planning Initial Assessment Updated by [id number]: Jyoti Murcia on 09/04/18 12:34 pm * Is the patient Alert and Oriented? Yes * How many steps to enter\exit or inside your home? * PCP DR. HOOVER IN [place] * Pharmacy [facility] IN [place] * Preadmission Environment Home with Family * ADLs Independent * Other Equipment WALKER, BSC, * List name and contact numbers for known caregivers / representatives who currently or will assist patient after discharge: SANJEEV MUNOZ - [facility]- [phone] * Verbal permission to speak to the caregivers and representatives has been obtained from the patient. Yes * Community resources currently utilized None * Additional services required to return to the preadmission environment? No * Can the patient safely return to the preadmission environment? Yes * Has this patient been hospitalized within the prior 30 days at any hospital? No Coverage Notice Reviewer: [email or web address] Vanessa Murcia Notice Issued Date-Time: 09/08/2018 9:59 Notice Type: IM Discharge Notice Notice Delivered To: Patient Relationship to Patient: Self Lining Inserter Name: Delivery Method: HAND - Hand Delivered Camelia Days: Prior Verbal Notification: Recipient Understood Notice: Yes Recipient Signature: Yes Med Rec Note Co-signed by Attending: Coverage Notice Comment: Last DP export: 09/08/18 4:37 pm Patient Name: ELVIA MUNOZ Page [phone] at 1049 All edits/amendments must be made on the electronic document DICTATION DATE: 09/11/18 1049 IT PROJECT LEAD: RELL 09/11/18 1049 RPT#: [id number] DC DATE:09/08/18 STATUS: DIS IN [facility] [address] [place] [address] END OF REPORT
== END 2018-09-08 14:58 | disposition home or self-care (01) | DRG 164 ==
LOC: D.SDCHOLD 07:30 → D.CVICU 09-01 06:31 → D.SDCHOLD 09-01 06:31 → D.CVICU 09-01 13:21
PROVIDERS: ADMIT Thoracic Surgery (Cardiothoracic Vascular Surgery)
PROC: 0BJ08ZZ Inspection of Tracheobronchial Tree, Via Natural or Artificial Opening Endoscopic (ICD-10-PCS; 2018-09-01)
PROC: 0BTJ0ZZ Resection of Left Lower Lung Lobe, Open Approach (ICD-10-PCS; principal; 2018-09-01 10:45)
PROC: 07B70ZX Excision of Thorax Lymphatic, Open Approach, Diagnostic (ICD-10-PCS; 2018-09-01 10:45)
DX: C34.32 Malignant neoplasm of lower lobe, left bronchus or lung (principal); K56.7 Ileus, unspecified; E78.5 Hyperlipidemia, unspecified; I10 Essential (primary) hypertension; Z87.891 Personal history of nicotine dependence; R00.0 Tachycardia, unspecified; I48.91 Unspecified atrial fibrillation

== ENCOUNTER 2018-09-09 06:36 | Inpatient (IN) | payer MEDICARE, BC ==
[~2018-09-09] VITALS: Ht 188 cm; Wt 100.1 kg
[~2018-09-09 06:36] MED LIST changes: +LOPRESSOR25 MG PO
--- NOTE | 2018-09-09 07:30 | NUR ---
PATIENT AWAKE AND ALERT, RESPIRATIONS EVEN AND UNLABORED, COLOR WNL FOR RACE. FAMILY AT BEDSIDE. PATIENT UPDATED ON PLAND OF CARE AND DELAYS IN CARE. WILL CONTINUE TO MONITOR.
[2018-09-09 07:31] VITALS: BP 150/70
[2018-09-09 07:37] LABS: BASOPHILS 0.3 % (0-2); EOSINOPHILS 0.1 % (0-7); HEMATOCRIT 42.2 % (42.0-54.0); HEMOGLOBIN 14.4 g/dL (13.5-17.5); IMMATURE GRANULOCYTES 1.9 % (0-5); LYMPHOCYTES 12.7 % (15-50); MCH 30.1 pg (26.0-34.0); MCHC 34.1 g/dL (31.0-37.0); MCV 88.1 fL (80.0-100.0); MEAN PLATELET VOLUME 10.3 fL (7.4-10.4); RBC 4.79 10x6/uL (4.20-6.10); RDW 14.1 % (11.5-14.5); WBC 17.8 10x3/uL (4.8-10.8)
[2018-09-09 07:38] LABS: PLATELET COUNT 288 10x3/uL (130-400)
[2018-09-09 07:56] LABS: APPEARANCE HAZY (CLEAR); BILIRUBIN NEGATIVE (NEGATIVE); COLOR YELLOW (YELLOW); GLUCOSE NEGATIVE (NEGATIVE); KETONE SMALL mg/dL (NEGATIVE); NITRITE NEGATIVE (NEGATIVE); PROTEIN 1+ mg/dL (NEGATIVE); UROBILINOGEN NORMAL (NORMAL)
[2018-09-09 07:58] LABS: BACTERIA FEW /hpf (NONE SEEN); EPITHELIAL CELLS 0-5 /hpf (0-5); RED CELLS - URINE 0-5 /hpf (0-5)
[2018-09-09 08:15] VITALS: BP 142/91
[2018-09-09 08:24] LABS: ALKALINE PHOSPHATASE 41 U/L (46-116); ALT (SGPT) 27 U/L (10-68); BILIRUBIN - TOTAL 0.48 mg/dL (0.2-1.3); CALC OSMOLALITY 297 mosm/kg (275-300); CALCIUM 8.1 mg/dL (8.5-10.1); CARBON DIOXIDE 24.6 mmol/L (21.0-32.0); CHLORIDE - SERUM 104 mmol/L (98-107); CREATINE KINASE 180 UL (21-232); CREATININE - SERUM 1.1 mg/dL (0.6-1.3); GLUCOSE 158 mg/dL (74-106); LIPASE 230 U/L (73-393); MAGNESIUM - SERUM 1.9 mg/dL (1.8-2.4); PRO BNP 1077 pg/mL (0-450); PROTEIN - SERUM 6.2 g/dL (6.4-8.2); SODIUM 143 mmol/L (136-145); TROPONIN-I < 0.017 ng/mL (0.000-0.060); UREA NITROGEN 41 mg/dL (7-18); eGFR NON AFRICAN AMERICAN 68 mL/min (90-120)
[2018-09-09 08:25] LABS: POTASSIUM - SERUM 2.9 mmol/L (3.5-5.1)
--- NOTE | 2018-09-09 08:30 | NUR ---
PATIENT GIVEN BLANKET AND MOUTH SWABS FOR COMFORT. UPDATED ON PLAN OF CARE AND DELAYS IN CARE. NO NEEDS NOTED. WILL CONTINUE TO MONITOR.
[2018-09-09 09:15] VITALS: BP 143/85
--- NOTE | 2018-09-09 09:24 | NUR ---
OCCULT STOOL PERFORMED, RESULTS ARE POSITIVE. EDP NOTIFIED.
[2018-09-09 11:00] VITALS: BP 153/91
--- NOTE | 2018-09-09 11:12 | NUR ---
PATIENT AWAKE AND ALERT, RESPIRATIONS EVEN AND UNLABORED. SPOUSE AT BEDSIDE. UPDATED ON PLAN OF CARE AND DELAYS IN CARE. WILL CONTINUE TO MONITOR.
--- NOTE | 2018-09-09 11:48 | NUR ---
2400 ML OF GASTRIC CONTENT OUTPUT @1148
--- NOTE | 2018-09-09 12:09 | NUR ---
OUTPUT OF 800 ML OF GREEN STOMACH CONTENTS.
[2018-09-09 12:47] VITALS: BP 143/87; BMI 32.8
--- NOTE | 2018-09-09 13:36 | MORECARE ---
CASE MANAGEMENT DISCHARGE SUMMARY PATIENT: ELVIA MUNOZ UNIT: [id number] ADM DATE: 09/09/18 AGE: 83 : 35 SEX: M ROOM/BED: D.1210 AUTHOR: PIPPA ROYAL PHYSICIAN: REFERRING PHYSICIAN: DOROTHY LAM MD DATE OF SERVICE: 09/09/18 Discharge Plan Patient Name: ELVIA MUNOZ [facility] [facility] 1935 Planned Disposition: Anticipated Discharge Date: 09/11/18 Discharge Date: Expected LOS: 2 Initial Reviewer: [email or web address] Initial Review Date: 09/09/2018 Generated: 09/09/18 2:36 pm Patient Name: ELVIA MUNOZ Page [phone] at 1336 All edits/amendments must be made on the electronic document DICTATION DATE: 09/09/186 PRINT SHOP ASSISTANT: RELL 09/09/18 1336 RPT#: [id number] DC DATE: STATUS: ADM IN [facility] [address] [place] [address] END OF REPORT
--- NOTE | 2018-09-09 13:43 | MORECARE ---
CASE MANAGEMENT DISCHARGE SUMMARY PATIENT: ELVIA HOLGUIN UNIT: [id number] ADM DATE: 09/09/18 AGE: 83 : 35 SEX: M ROOM/BED: D.1210 AUTHOR: GENNYDOC PHYSICIAN: REFERRING PHYSICIAN: DOROTHY LAM MD DATE OF SERVICE: 09/09/18 Discharge Plan Patient Name: ELVIA HOLGUIN Facility: [facility]:[place] : 1935 Planned Disposition: Anticipated Discharge Date: 09/11/18 Discharge Date: Expected LOS: 2 Initial Reviewer: [email or web address] Initial Review Date: 09/09/2018 Generated: 09/09/18 2:43 pm DCP- Discharge Planning Updated by [email or web address]: Annemarie Rosenthal on 09/09/18 12:[address] Patient Name: ELVIA HOLGUIN Admission Status: ER Accout number: [id number] Admission Date: 09-09-2018 : 1935 Admission Diagnosis: Attending: DOROTHY LAM Current LOS: 1 Anticipated DC Date: 09-11-2018 Planned Disposition: Primary Insurance: MEDICARE A & B Discharge Planning Comments: CM met with patient, his , and his son to complete initial dc planning assessment. CM educated patient on the CM role and verbal consent given by patient to complete assessment. Patient lives at home with his and just discharged home on 09/08/18 status post partial pneumonectomy. Prior to his surgery he was independent in all his ADL's and IADL's. At discharge patient plans to return home with his and feels this is a safe discharge. Patient denied known discharge needs at this time. CM will continue to follow and will assist as needed with dc plans/needs. Portfolio Director: Annemarie Rosenthal RN, [facility] DCPIA - Discharge Planning Initial Assessment Updated by [id number]: Annemarie Rosenthal on 09/09/18 1:37 pm * Is the patient Alert and Oriented? Yes * How many steps to enter\exit or inside your home? none * PCP Dr. Urvashi B[facility] * [facility]acy [facility] * Preadmission Environment Home with Family * ADLs Independent * Equipment Rolling Walker * Other Equipment Did not use until recent surgery * List name and contact numbers for known caregivers / representatives who currently or will assist patient after discharge: Kristi Holguin - spouse - [phone] Portillo Holguin - son - [phone] * Verbal permission to speak to the caregivers and representatives has been obtained from the patient. Yes * Community resources currently utilized None * Additional services required to return to the preadmission environment? No * Can the patient safely return to the preadmission environment? Yes * Has this patient been hospitalized within the prior 30 days at any hospital? Yes Last DP export: 09/09/18 12:36 pm Patient Name: ELVIA HOLGUIN Page [phone] at 1343 All edits/amendments must be made on the electronic document DICTATION DATE: 09/09/181342 ATTENDING ANESTHESIOLOGIST: RELL 09/09/18 1343 RPT#: [id number] DC DATE: STATUS: ADM IN [facility] [address] [place] [address] END OF REPORT
[2018-09-09 15:43] VITALS: BP 147/85
--- NOTE | 2018-09-09 17:40 | NUR ---
PATIENT IN BED WITH FAMILY AT BEDSIDE, SKIN W/D TO TOUCH, COLOR PINK, RESP. REGULAR AND EVEN AT 18. POTASSIUM 2.9 AWAIT POTASSIUM IVPB'S FROM PHARMACY. DENIES ANY C/O PAIN WHEN ASKED.
--- NOTE | 2018-09-09 18:32 | NUR ---
PATIENT ON 1ST BAG OF IV POTASSIUM AND TOLERATING WELL. SKIN W/D TO TOUCH, EYES CLOSED AND RESP. REGULAR AND EVEN AT 20. C/L WITHIN REACH AND SR'S UP X'S 2.
--- NOTE | 2018-09-09 19:40 | NUR ---
THE PATIENT WAS WATCHING TELEVISION WHEN STAFF ENTERED HIS ROOM. BED IN THE LOW POSITION WITH SIDERAILS UP X2. CALL LIGHT WITHIN REACH. THE PATIENT WAS EDUCATED ON THE USE OF A CALL LIGHT AND DEMONSTRATED UNDERSTANDING VIA TEACHBACK METHOD. DELFIN PERLA APPEARS COMFORTABLE AND HAS NO QUESTIONS OR CONCERNS AT THIS TIME.
[2018-09-10 00:17] VITALS: BP 149/78
--- NOTE | 2018-09-10 00:37 | NUR ---
PATIENT IS AWAKE. TOTAL LINEN CHANGE. BED IN LOW POSITION WITH SIDERAILS X2 AND CALL LIGHT WITHIN REACH. THEE PATIENT APPEARS COMFORTABLE WITH NO QUESTIONS OR CONCERNS.
[2018-09-10 07:00] VITALS: BP 149/86
--- NOTE | 2018-09-10 08:59 | NUR ---
PT RESTING IN BED THIS AM WITH EYES OPEN. NG TUBE NOTED TO LEFT NARE, SUCTIONING, GOOD OUTPUT NOTED. C/O DRY MOUTH. MOIST TOWEL GIVEN TO HELP. RESPIRATIONS EVEN AND UNLABORED, NO S/S OF DISTRESS NOTED. O2 NOTED AT 2L VIA NC. LCTA. DRESSING NOTED TO LEFT LOWER LOBE, CDI. DENIES NEEDS AT THIS TIME. LAB CALLED, SAID THEY WERE RUNNING BEHIND TODAY ON LAB DRAWS. AWAITTING TO CHECK POTASSIUM LEVELS. BED LOW AND LOCKED, SR UP X2, CL IN EASY REACH. WILL CONTINUE TO MONITOR.
[2018-09-10 10:18] LABS: BASOPHILS 0.4 % (0-2); EOSINOPHILS 0.9 % (0-7); HEMATOCRIT 39.8 % (42.0-54.0); HEMOGLOBIN 13.4 g/dL (13.5-17.5); IMMATURE GRANULOCYTES 3.5 % (0-5); LYMPHOCYTES 14.6 % (15-50); MCH 29.9 pg (26.0-34.0); MCHC 33.7 g/dL (31.0-37.0); MCV 88.8 fL (80.0-100.0); MEAN PLATELET VOLUME 10.2 fL (7.4-10.4); MONOCYTES 6.4 % (2-11); NEUTROPHILS 74.2 % (40-80); PLATELET COUNT 264 10x3/uL (130-400); RBC 4.48 10x6/uL (4.20-6.10); RDW 14.2 % (11.5-14.5); WBC 13.8 10x3/uL (4.8-10.8)
[2018-09-10 10:26] LABS: CARBON DIOXIDE 25.1 mmol/L (21.0-32.0); CREATININE - SERUM 1.3 mg/dL (0.6-1.3); POTASSIUM - SERUM 3.1 mmol/L (3.5-5.1)
--- NOTE | 2018-09-10 14:27 | NUR ---
PT LAYING IN BED RESTING WATCHING TV. FAMILY AT BEDSIDE. ADMINISTERING IV POTASSIUM PER ELECTROLYTE PROTOCOL. DENIES NEEDS AT THIS TIME. CL IN EASY REACH.
[2018-09-10 15:50] VITALS: BP 157/79
--- NOTE | 2018-09-10 18:30 | NUR ---
FAMILY HAS LEFT FOR THE DAY, PT IN ROOM RESTING WITH EYES CLOSED. 300 OUTPUT NOTED IN NEW CANISTER WITH 1100ML BEING THE TOTAL FOR TODAY'S SHIFT. CL IN EASY REACH.
--- NOTE | 2018-09-10 19:15 | NUR ---
THE PATIENT WAS LYING IN BED, WATCHING TELEVISION, WHEN STAFF ENTERED HIS ROOM. BED IN THE LOW POSITION WITH SIDERAILS UP X2 AND CALL LIGHT WITHIN REACH. THE PATIENT STATES THAT HE FEELS BETTER THAN HE DID YESTERDAY. THE PATIENT APPEARS COMFORTABLE AND HAS NO QUESTIONS OR CONCERNS AT THIS TIME.
[2018-09-10 23:11] VITALS: BP 151/82
[2018-09-11] VITALS (10 sets, daily range): BP systolic 130–174; BP diastolic 72–92; Ht 188 cm; Wt 100.1 kg
--- NOTE | 2018-09-11 07:58 | NUR ---
PT RESTING COMFORTABLY IN BED, NG TUBE IN PLACE, PT DENIES ANY NEEDS AT THIS TIME. FAMILY AT BEDSIDE, NAD NOTED.
[2018-09-11 08:06] LABS: BASOPHILS 0.7 % (0-2); IMMATURE GRANULOCYTES 5.3 % (0-5); LYMPHOCYTES 16.6 % (15-50); MCH 29.4 pg (26.0-34.0); MCHC 32.5 g/dL (31.0-37.0); MCV 90.5 fL (80.0-100.0); MEAN PLATELET VOLUME 10.2 fL (7.4-10.4); MONOCYTES 7.3 % (2-11); NEUTROPHILS 68.1 % (40-80); PLATELET COUNT 271 10x3/uL (130-400); RBC 4.42 10x6/uL (4.20-6.10); RDW 14.6 % (11.5-14.5); WBC 11.4 10x3/uL (4.8-10.8)
[2018-09-11 08:18] LABS: ANION GAP 13.7 mmol/L (8-16); CALCIUM 7.8 mg/dL (8.5-10.1); CARBON DIOXIDE 26.6 mmol/L (21.0-32.0); CREATININE - SERUM 1.1 mg/dL (0.6-1.3); POTASSIUM - SERUM 3.3 mmol/L (3.5-5.1)
--- NOTE | 2018-09-11 11:27 | NUR ---
PT RESTING IN BED. NO SIGNS OF DISTRESS. IV TO LEFT AC PATENT NO REDNESS OR TENDERNESS. HAS NG TUBE OFF SUCTION AT THIS TIME DUE TO SMALL BOWEL SERIES. HAS INCISION TO BACK DRESSING INTACT. DENIES ANY NEED AT THIS TIME. CALL LIGHT IN REACH. BED LOW POSITION. FAMILY AT BEDSIDE.
--- NOTE | 2018-09-11 16:59 | NUR ---
PT TRANSFERED UP TO CVICU. NO SIGNS OF DISTRESS. IV AND NG TUBE CLAMPED TO TRANSFER. DENIES ANY NEED AT THIS TIME. FAMILY WITH PT.
--- NOTE | 2018-09-11 17:15 | NUR ---
PT RECIEVED TO CV1 1700 ASSISTED TO BED, NGT TO L NARE IN PLACE PER AUCULTATION, PLACED TO LIWS, PIV TO LFA WITH NS 100ML/HR, INITATED BAG OF K PER PROTOCOL, CONTINENT, URINAL PROVIDED, NOTIFIED DR NEW OF PT ARRIVAL, NO NEW ORDERS EXCEPT TO AMBULATE THIS SHIFT, FAMILY AT BEDSIDE AND QUESTIONS ANSWERED, WILL CONTINUE TO MONITOR
--- NOTE | 2018-09-11 18:20 | NUR ---
AMBULATED WITH PT
--- NOTE | 2018-09-11 19:00 | NUR ---
REPORT RECEIVED CARE ASSUMED INITIAL SHIFT ASSESSMENT COMPLETED SEE FLOWSHEET. TAPE SECURING NGT REMOVED AND NGT STATLOCK APPLIED AFTER SKIN PROTECTANT USED. PT AAOX4 WATCHING TELEVISION. DENIES NEEDS. PLACEMENT VERIFIED OF NGT PER AIR BOLUS HEARD APPROPRIATLY. PT MONITORED PER STANDARD CVICU PROTOCOL WITH ALL ALARMS SET, VERIFIED AND AUDIBLE AT NURSES STATION. IVF AND TUBING LABELED APPROPRIATE AND ARE NOT DUE TO BE CHANGED. IVF, RATES AND ALL CHANGES DOCUMENTED ON IV GTT SHEET. CALL LIGHT IN HAND AND PT ABLE TO USE TO CALL FOR ASSISTANCE. BED IN LOW POSITION.
--- NOTE | 2018-09-11 23:00 | NUR ---
SHIFT REASSESSMENT COMPLETED SEE FLOWSHEET. PT HAS BEE BREATHING SHALLOW AT TIMES WITH O2 SAT FALLING IN MID 80'S. PT IS DOING INCENTIVE SPIROMETRY 1500 WITH GOOD EFFORT BUT O2 SATS REMAIN SUBOPTIMAL. O2 AT 2. N/C WAS PLACED ON PT. RT NOTIFIED
[2018-09-12] VITALS (22 sets, daily range): BP systolic 118–164; BP diastolic 65–85
--- NOTE | 2018-09-12 01:00 | NUR ---
PT DENIES NEEDS ALTHOUGH HAS NOT BEEN SLEEPING WELL TONIGHT.
--- NOTE | 2018-09-12 04:00 | NUR ---
PT SLEEPING AT THIS TIME. HAS NOT SLEPT WELL AT ALL TONIGHT. WILL HAVE RADIOLOGY DO ORDERED PCXR A BIT LATER.
--- NOTE | 2018-09-12 04:30 | NUR ---
,PT AWAKE, RADIODOLOGY AT BEDSIDE TO DO KUB. PT TOLERATED FAIR. BECAME QUITE SOB WITH THE EXERTION
--- NOTE | 2018-09-12 05:00 | NUR ---
PT FULLY RECOVERED FROM EXERTIONAL ACTIVITY. RESTING WATCHING TELEVISION. ENCOURAGED TO GET SOME MORE REST. MILD CONFUSION NOTED AT THIS TIME
--- NOTE | 2018-09-12 05:47 | NUR ---
PT SLEEPING SNORING LIGHTLY.
[2018-09-12 06:29] LABS: BASOPHILS 0.5 % (0-2); EOSINOPHILS 2.1 % (0-7); HEMATOCRIT 40.1 % (42.0-54.0); IMMATURE GRANULOCYTES 4.5 % (0-5); LYMPHOCYTES 14.1 % (15-50); MCH 29.7 pg (26.0-34.0); MCHC 32.4 g/dL (31.0-37.0); MCV 91.6 fL (80.0-100.0); MEAN PLATELET VOLUME 9.9 fL (7.4-10.4); MONOCYTES 6.3 % (2-11); NEUTROPHILS 72.5 % (40-80); PLATELET COUNT 252 10x3/uL (130-400); RBC 4.38 10x6/uL (4.20-6.10); RDW 14.9 % (11.5-14.5); WBC 11.9 10x3/uL (4.8-10.8)
[2018-09-12 06:53] LABS: ALBUMIN 1.9 g/dL (3.4-5.0); ANION GAP 14.3 mmol/L (8-16); BILIRUBIN - TOTAL 0.43 mg/dL (0.2-1.3); CALCIUM 7.9 mg/dL (8.5-10.1); CARBON DIOXIDE 28.4 mmol/L (21.0-32.0); CREATININE - SERUM 1.1 mg/dL (0.6-1.3); POTASSIUM - SERUM 3.7 mmol/L (3.5-5.1); PROTEIN - SERUM 5.7 g/dL (6.4-8.2)
--- NOTE | 2018-09-12 08:32 | NUR ---
OOB TO CHAIR. DR NEW HERE. FAMILY HERE. ALL MONITORING EQUIPMENT ATTACHED AND ALARMS SET. CALL LIGHT IN REACH.
--- NOTE | 2018-09-12 08:51 | NUR ---
FAMILY AT BS. POC REVIEWED FOR TODAY.
--- NOTE | 2018-09-12 11:08 | NUR ---
PT AMB WITH WALKER BY THIS RN. WALKED 1/2 LENGTH [facility].
--- NOTE | 2018-09-12 15:06 | NUR ---
PT CO BUTTOCKS HURTING. ASSISTED PT TO STANDING POSITION SEVERAL TIMES. PT CONTINUE TO C/O PAIN AND REQUESTED TO GO BACK TO BED. ASSISTED PT BACK TO BED AND HE AGREED TO GET OOB THIS AFTERNOOD. PT NOW RESTING QUIETLY. VSS.
--- NOTE | 2018-09-12 19:15 | NUR ---
REPORT RECEIVED CARE ASSUMED INITIAL SHIFT ASSESSMENT COMPLETED SEE FLOWSHEET. PT NOTED TO HAVE NGT TO LIS WITH DARK GREEN/RUST BILE COLORED SECRETIONS PRESENT IN TUBING. PT REMAINS NPO. MONITORED PER STANDARD CVICU PROTOCOL WITH ALL ALARMS SET, VERIFIED AND AUDIBLE AT NURSES STATION. PT ABLE TO TURN AND REPOSITION SELF INDEPENDENTLY. IVF AND LINES ARE CURRENT AND NOT DUE TO BE CHANGED AT THIS TIME. IVF RATES AND CHANGES RECORDED ON GTT FLOWSHEET. IV TUBING CHANGES RECORDED ON NOV. BED IN LOW POSITION CALL LIGHT IN REACH PT ABLE TO MAKE NEEDS KNOWN.
--- NOTE | 2018-09-12 21:00 | NUR ---
NEPHEW HERE TO SEE PT. PT VISITED FREELY WITH HIM AND UPDATED HIM
--- NOTE | 2018-09-12 23:00 | NUR ---
SHIFT REASSESSMENT COMPLETED PT NOTED TO HAVE PERIODIC DIPS IN SPO2 IN DIRECT CORRECLATION WITH HIS RESPIRATION RATE. PT HAVING SHORT INFREQUENT EPISODES OF APNEA.
[2018-09-13] VITALS (23 sets, daily range): BP systolic 128–160; BP diastolic 57–88
--- NOTE | 2018-09-13 01:00 | NUR ---
PT SLEEPING MUCH BETTER TONIGHT THAN LAST NIGHT. CONTINUE TO MONITOR
--- NOTE | 2018-09-13 03:00 | NUR ---
SHIFT REASSESSMENT COMPLETED SEE FLOWSHEET. NO SIGNIFICANT CHANGES
--- NOTE | 2018-09-13 05:00 | NUR ---
RADIOLOGY AT BEDSIDE FOR KUB
[2018-09-13 05:47] LABS: BASOPHILS 0.5 % (0-2); EOSINOPHILS 1.5 % (0-7); HEMATOCRIT 40.5 % (42.0-54.0); HEMOGLOBIN 12.8 g/dL (13.5-17.5); IMMATURE GRANULOCYTES 3.5 % (0-5); MCH 29.8 pg (26.0-34.0); MCHC 31.6 g/dL (31.0-37.0); MEAN PLATELET VOLUME 10.4 fL (7.4-10.4); MONOCYTES 5.4 % (2-11); NEUTROPHILS 75.1 % (40-80); WBC 13.7 10x3/uL (4.8-10.8)
[2018-09-13 05:49] LABS: ANION GAP 14.1 mmol/L (8-16); CALCIUM 8.5 mg/dL (8.5-10.1); CARBON DIOXIDE 29.7 mmol/L (21.0-32.0); CREATININE - SERUM 1.2 mg/dL (0.6-1.3); POTASSIUM - SERUM 3.8 mmol/L (3.5-5.1)
[2018-09-13 06:07] LABS: MCV 94.2 fL (80.0-100.0); PLATELET COUNT 306 10x3/uL (130-400)
--- NOTE | 2018-09-13 06:15 | NUR ---
PT UP IN CHAIR WITH CALL LIGHT LEFT IN HAND. PT AGAIN DENIES BATH STATING HE WILL TAKE ONE BEFORE HE RETURNS TO BED. ALL LINENS CHANGED ON BED.
--- NOTE | 2018-09-13 08:29 | NUR ---
PT SITTING UP IN CHAIR, VSS, NGT TO LIS. HYPOACTIVE BS HEARD. ASSISTED WITH MOUTH CARE KIT.
--- NOTE | 2018-09-13 10:22 | NUR ---
PT AMB WITH PT. DR NEW HERE THIS AM. VASCULAR ACCESS NURSE CALLED. MESSAGE LEFT ON VOICE MAIL.
--- NOTE | 2018-09-13 11:04 | NUR ---
ASSISTED PT TO BSC . CALL LIGHT IN REACH
--- NOTE | 2018-09-13 14:38 | NUR ---
picc line placed lue. xr for placement ordered.
--- NOTE | 2018-09-13 14:48 | NUR ---
Nutrition consult: Received order to begin TPN PICC line placed Labs reviewed Order for TPN sent to pharmacy D20W,5%AA @ 50 ml/hr with 20% 250 ml intralipids every other day. RDN monitoring TPN
--- NOTE | 2018-09-13 15:22 | NUR ---
1100- ASSISTED PT TO BSC FOR BM. LOOSE BROWN STOOL APPROX 100CC.
--- NOTE | 2018-09-13 18:53 | NUR ---
SPOKE WITH CAROLINE RN, VASCULAR ACCESS NURSE AND READ IMPRESSION AND RECEIVED VERBAL CONFIRMATION THE LINE IS OK TO USE
--- NOTE | 2018-09-13 20:00 | NUR ---
IV LINES ALL NEW AND TPN VERIFIED AND BEGAN TO RIGHT UPPER ARM PICC. PT HAS BEEN WATCHING TELEVISION AND DOZING OFF AND ON THIS EVENING
--- NOTE | 2018-09-13 21:00 | NUR ---
NO VISITORS AT THIS TIME. PT SLEEPING RESP REG AND NONLABORED
[2018-09-14] VITALS (24 sets, daily range): BP systolic 109–132; BP diastolic 62–88
[2018-09-14 05:25] LABS: HEMATOCRIT 41.2 % (42.0-54.0); HEMOGLOBIN 13.3 g/dL (13.5-17.5); LYMPHOCYTES 13.2 % (15-50); MCH 29.9 pg (26.0-34.0); MCHC 32.3 g/dL (31.0-37.0); MCV 92.6 fL (80.0-100.0); MEAN PLATELET VOLUME 9.9 fL (7.4-10.4); NEUTROPHILS 81.8 % (40-80); PLATELET COUNT 290 10x3/uL (130-400); RBC 4.45 10x6/uL (4.20-6.10); RDW 14.1 % (11.5-14.5); WBC 11.5 10x3/uL (4.8-10.8)
[2018-09-14 05:36] LABS: CALCIUM 8.3 mg/dL (8.5-10.1); CARBON DIOXIDE 32.6 mmol/L (21.0-32.0); CREATININE - SERUM 1.3 mg/dL (0.6-1.3); POTASSIUM - SERUM 3.6 mmol/L (3.5-5.1)
[2018-09-14 07:26] LABS: MAGNESIUM - SERUM 2.2 mg/dL (1.8-2.4); PHOSPHOROUS 3.3 mg/dL (2.5-4.9)
--- NOTE | 2018-09-14 07:31 | NUR ---
UP IN CHAIR AT BEDSIDE. DENIES ANY PAIN NG TUBE TO LOW INTEMITTENT SUCTION WITH BROWN LIQUID DRAINAGE. IV RIGHT UPPER ARM PIC INFUSING WITH TPN AT 50 ML HOUR. NS AT 50 ML HOUR. DRESSING DRY AND INTACT. LEFT BACK INCISION WITH STERI STRIPS IN PLACE. HEALING WELL.
--- NOTE | 2018-09-14 07:33 | NUR ---
Nutrition follow-up: Labs reviewed Na, Cl trending up New TPN order sent to pharmacy. Please hang new TPN bag as soon as it arrives to floor. RDN following.
--- NOTE | 2018-09-14 09:00 | NUR ---
PHYSICAL THERAPY HERE WALKED PATIENT IN MAS. PATIENT REQUESTING TO LAY DOWN IN BED. NG TUBE CLAMPED ORDERED.
--- NOTE | 2018-09-14 09:54 | NUR ---
FAMILY HERE TALKED WITH SOFÍA HERNANDEZ CHIEF SERVICE OBSERVER NURSE UPDATE GIVEN.
--- NOTE | 2018-09-14 11:07 | NUR ---
PATIENT REQUESTING TO GET UP OUT OF BED. POOR GAIT, AMBULATES VERY SLOWLY AND UNSTEADY. BECOMES SHORT OF BREATH WALKING TO CHAIR AT BEDSIDE. REQUESTING WATER, EXPLAINED WHY HE CAN NOT HAVE WATER AT THIS TIME. WET WASH CLOTH PROVIDED. DENIES ANY NAUSEA. ABD SOFT. NG CLAMPED.
--- NOTE | 2018-09-14 12:08 | NUR ---
FAMILY HERE UPDATE GIVEN. NO NAUSEA. ABD SOFT. NG STILL CLAMPED
--- NOTE | 2018-09-14 12:55 | NUR ---
COMPLIANTING OF NAUSEA. ABD SOFT. GOOD BOWEL SOUNDS. ZOFRAN 4 MG IV GIVEN. FAMILY AT BEDSIDE
--- NOTE | 2018-09-14 15:00 | NUR ---
DENIES ANY NAUSEA AT THIS TIME. AMBULATED BACK TO BED. NO SHORTNESS OF BREATH NOTED. MONITOR SR-ST. RESTING WELL. AT BEDSIDE.NG CLAMPED. VOIDED CLEAR JUDY URINE.
--- NOTE | 2018-09-14 18:36 | NUR ---
IN BED NAPPING NO DISTRESS
[2018-09-15] VITALS (24 sets, daily range): BP systolic 97–158; BP diastolic 59–93
--- NOTE | 2018-09-15 02:22 | NUR ---
NO CHANGES IN PT STATUS AT THIS TIME. PT HAS NOT PRODUCED EMESIS AT THIS TIME. WILL CONTINUE TO MONITOR
[2018-09-15 06:10] LABS: BASOPHILS 0.2 % (0-2); EOSINOPHILS 1.5 % (0-7); HEMATOCRIT 42.5 % (42.0-54.0); HEMOGLOBIN 13.5 g/dL (13.5-17.5); IMMATURE GRANULOCYTES 1.1 % (0-5); MCH 29.9 pg (26.0-34.0); MCHC 31.8 g/dL (31.0-37.0); MCV 94.2 fL (80.0-100.0); MEAN PLATELET VOLUME 10.3 fL (7.4-10.4); MONOCYTES 4.1 % (2-11); NEUTROPHILS 80.1 % (40-80); PLATELET COUNT 270 10x3/uL (130-400); RBC 4.51 10x6/uL (4.20-6.10); WBC 13.3 10x3/uL (4.8-10.8)
[2018-09-15 06:28] LABS: ANION GAP 9.9 mmol/L (8-16); CALCIUM 8.1 mg/dL (8.5-10.1); CARBON DIOXIDE 30.9 mmol/L (21.0-32.0); CREATININE - SERUM 1.4 mg/dL (0.6-1.3); MAGNESIUM - SERUM 2.3 mg/dL (1.8-2.4); POTASSIUM - SERUM 3.8 mmol/L (3.5-5.1)
--- NOTE | 2018-09-15 07:00 | NUR ---
REPORT RECEIVED FROM THE OFF GOING RN. SEE ASSESSMENT IN THE PTS FLOW SHEET. PT SITTING OOB IN BEDSIDE CHAIR. PT NOTED TO HAVE AN NGT CLAMPED. ACTIVE BS X4. ABD SOFT AND ROUND. PT STATES THAT HE IS PASSING GAS. VSS. O2 CURRENLTY ON 2L VIA NC. DECREASED O2 TO 1L VIA NC. CALL LIGHT IN REACH. WILL CONT POC.
--- NOTE | 2018-09-15 07:30 | NUR ---
EXPERIMENTAL WELDER NURSE SPOKE WITH DR HERNANDEZ AND UPDATED THAT THE PT HAS HAD NO EMESIS AND DENIES NAUSEA AT THIS TIME. NGT REMAINS CLAMPED. WAS INSTRUCTED TO KEEP NGT CLAMPED AND TO CANCELL THE SURGERY PER DR HERNANDEZ.
--- NOTE | 2018-09-15 07:54 | NUR ---
Nutrition follow-up: chart reviewed Na, Cl still high There is no Cl,Na in TPN IVF is NS @ 50 ml/hr providing 185 MeQ Na May need to change IVF to 1/2 NS due to elevated Na. RDN following.
--- NOTE | 2018-09-15 09:36 | NUR ---
Nutrition follow-up: TPN increased to 75 ml/hr to better meet pts nutritional needs. RDN following.
--- NOTE | 2018-09-15 10:00 | NUR ---
PT AMBULATING WITH PHYSICAL THEARPY. DID NOT OBSERVE THE PT BUT PHYSICAL THEARPY STATED HE AMBULATED 150 FT WITH NO ISSUES.
--- NOTE | 2018-09-15 10:30 | NUR ---
DR IFEOMA CARDENAS AT THE PTS BEDSIDE. WILL REPORT VOMITING. WAS INSTRUCTED IF THE PT IS TO VOMIT, PLACE THE PT ON LIS. PT DESNIS NAUSEA AT THIS TIME.
--- NOTE | 2018-09-15 11:41 | NUR ---
PRN ZOFRAN GIVE FOR NAUSEA.
--- NOTE | 2018-09-15 11:43 | NUR ---
SPOKE WITH THE PHARMASIST PER DR NEW REQUEST R/T 1/2NS. [facility] STATED HE RECOMENDED TO DECREASE 1/2NS TO 30ML/H.
--- NOTE | 2018-09-15 12:00 | NUR ---
DR ALBERT CHANGED FLUIDS TO D5W AT 50ML/H
--- NOTE | 2018-09-15 12:22 | NUR ---
DR HERNANDEZ IN THE UNIT. NO NEW ORDRES.
--- NOTE | 2018-09-15 14:46 | NUR ---
PHYSICAL THEARPY AT THE PTS BEDSIDE. PT AMBULATING 150 FT WITH ASSISTANCE OF A ROLLING WALKER. PT TOLERATED WELL.
--- NOTE | 2018-09-15 17:50 | NUR ---
PT LYING IN BED. PT INC OF BLADDER AND BOWEL. SMALL NON FORMED BM NOTED. PT'S LINENS CHANGED AND PT CLEANED.
--- NOTE | 2018-09-15 19:00 | NUR ---
PT CONTINUES NG CLAMP TEST. NO EMESIS PRODUCED AT THIS TIME. PT VERY CONFUSED. BED ALARM ON. CLOSE PROXIMITY TO NURSE. VSS. WILL MONITOR
--- NOTE | 2018-09-15 21:41 | NUR ---
MEDS GIVEN. PT REMAINS CONFUSED AND LETHARGIC. VSS. REMAINS ABLE TO FOLLOW COMMANDS WHEN AWOKEN. WILL MONITOR CLOSELY.
[2018-09-16] VITALS (24 sets, daily range): BP systolic 97–128; BP diastolic 50–82
--- NOTE | 2018-09-16 03:01 | NUR ---
REASSESSMENT COMPLETED. WILL MONITOR
--- NOTE | 2018-09-16 03:31 | NUR ---
COMPLETE LINEN CHANGE PROVIDED. PT HAD INCONTINENT STOOL AND URINE. WILL MONITOR
[2018-09-16 06:34] LABS: BASOPHILS 0.1 % (0-2); EOSINOPHILS 1.6 % (0-7); HEMATOCRIT 37.4 % (42.0-54.0); HEMOGLOBIN 11.7 g/dL (13.5-17.5); IMMATURE GRANULOCYTES 0.7 % (0-5); LYMPHOCYTES 15.7 % (15-50); MCHC 31.3 g/dL (31.0-37.0); MCV 95.9 fL (80.0-100.0); MEAN PLATELET VOLUME 10.2 fL (7.4-10.4); MONOCYTES 4.8 % (2-11); NEUTROPHILS 77.1 % (40-80); PLATELET COUNT 216 10x3/uL (130-400); RDW 15.2 % (11.5-14.5)
[2018-09-16 06:43] LABS: WBC 9.4 10x3/uL (4.8-10.8)
--- NOTE | 2018-09-16 07:00 | NUR ---
REC'D CARE OF PT. SITTING IN CHAIR. PLEASANTLY CONFUSED. TEACHING DONE ON STAYING IN CHAIR SO HE WOULD NOT FALL AND TO CALL ME FLY FRAME TENDER LIGHT IF HE NEEDED ANYTHING. VERBALLY DEMONSTRATES UNDERSTANDING OF MY REQUEST. REORIENTED TO TIME.
--- NOTE | 2018-09-16 07:23 | NUR ---
INITIAL ASSESSMENT COMPLETED.
[2018-09-16 07:28] LABS: ALBUMIN 1.7 g/dL (3.4-5.0); ALKALINE PHOSPHATASE 62 U/L (46-116); ALT (SGPT) 154 U/L (10-68); BILIRUBIN - TOTAL 0.36 mg/dL (0.2-1.3); CALC OSMOLALITY 307 mosm/kg (275-300); CALCIUM 7.3 mg/dL (8.5-10.1); CARBON DIOXIDE 29.4 mmol/L (21.0-32.0); GLUCOSE 141 mg/dL (74-106); POTASSIUM - SERUM 3.5 mmol/L (3.5-5.1); PROTEIN - SERUM 5.4 g/dL (6.4-8.2); SODIUM 151 mmol/L (136-145); UREA NITROGEN 29 mg/dL (7-18)
[2018-09-16 07:30] LABS: CHLORIDE - SERUM 116 mmol/L (98-107); eGFR NON AFRICAN AMERICAN 76 mL/min (90-120)
--- NOTE | 2018-09-16 08:20 | NUR ---
FAMILY AT BEDSIDE. UPDATED. QUESTIONS ANSWERED. CONCERNS ADDRESSED.
--- NOTE | 2018-09-16 09:37 | NUR ---
FSBS 129. NO INTERVENTION NEEDED.
--- NOTE | 2018-09-16 09:45 | NUR ---
AT BEDSIDE. UPDATED FAMILY AND PT.
--- NOTE | 2018-09-16 10:05 | NUR ---
AMBULATED EARLIER WITH BEV PT, 180 FEET AND BACK TO CHAIR.
[2018-09-16 10:11] LABS: MAGNESIUM - SERUM 2.3 mg/dL (1.8-2.4); PHOSPHOROUS 3.7 mg/dL (2.5-4.9)
--- NOTE | 2018-09-16 10:38 | NUR ---
REASSESSMENT DONE PER FLOW SHEET. NO ACUTE CHANGES. REMAINS UP TO CHAIR. DENIES NEEDS. VSS.
--- NOTE | 2018-09-16 11:59 | NUR ---
BACK TO BED FROM CHAIR.
--- NOTE | 2018-09-16 12:02 | NUR ---
FAMILY AT BEDSIDE. UPDATED.
--- NOTE | 2018-09-16 12:12 | NUR ---
FLUSHED NGT WITH 60 CC H20 AND CLAMPED OFF.
--- NOTE | 2018-09-16 12:18 | NUR ---
TPN BAG NUMBER 5 VERIFIED AGAINST ORDER.
--- NOTE | 2018-09-16 12:40 | NUR ---
DR. RICKETTS AT BEDSIDE.
--- NOTE | 2018-09-16 13:01 | NUR ---
NGT REMAINS CLAMPED. NO NAUSEA. NO EMESIS.
--- NOTE | 2018-09-16 13:49 | NUR ---
LIPIDS ARE COMPLETE.
--- NOTE | 2018-09-16 13:51 | NUR ---
OFFERED LIQUIDS. REQUESTED APPLE JUICE. OBLIGED.
--- NOTE | 2018-09-16 14:01 | NUR ---
NO S/S OF NAUSEA.
--- NOTE | 2018-09-16 14:16 | NUR ---
RESTING WITH EYES CLOSED. VSS.
--- NOTE | 2018-09-16 14:25 | NUR ---
REASSESSMENT COMPLETED PER FLOW SHEET. NO ACUTE CHANGES.
--- NOTE | 2018-09-16 15:04 | NUR ---
BLOOD DRAWN FOR K LEVEL AND SENT TO LAB PER PROTOCOL.
--- NOTE | 2018-09-16 15:22 | NUR ---
K LEVEL 3.6. NOTHING TO TREAT PER PRTOCOL.
--- NOTE | 2018-09-16 16:31 | NUR ---
FSBS 115. NO INTERVENTION.
--- NOTE | 2018-09-16 16:32 | NUR ---
FAMILY AT BEDSIDE. UPDATED.
--- NOTE | 2018-09-16 16:45 | NUR ---
HAD SMALL, SMEARY BROWN STOOL. BATHED AND LINEN CHANGED.
--- NOTE | 2018-09-16 16:59 | NUR ---
APPLE JUICE SERVED OFF OF CL TRAY. HE REQUESTED HIS COME BACK AND ASSIST HIM. OBLIGED.
--- NOTE | 2018-09-16 17:33 | NUR ---
TOLERATING CL LIQUIDS WELL. NO S/S OF NAUSEA.
--- NOTE | 2018-09-16 18:23 | NUR ---
RESTING WITH EYES CLOSED. VSS.
--- NOTE | 2018-09-16 19:00 | NUR ---
SHIFT ASSESSMENT COMPLETE. PT IS A&O X3, CONFUSED ABOUT TIME. REORIENTED. PERRLA, 3 MM, BRISK REACTION TO LIGHT. 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 NGT TO L NARE, CLAMPED. S1S2 AUDIBLE, NSR SHOWING ON MONITOR. RR SHALLOW, CLEAR LUNG SOUNDS THROUGHOUT ALL LOBES. ABD IS SOFT AND NONTENDER TO TOUCH. L UPPER BACK INCISION DOES NOT SHOW ANY SIGNS OF INFECTION, STERI STRIPS IN PLACE, BRENDAN NOTED. SCARS NOTED ON ABD. R UPPER ARM PICC INFUSING D5W @ 50 ML/HR AND TPN @ 75 ML/HR. RADIAL AND PEDAL PULSES PALP. REDDENED AREA NOTED ON BUTTOCKS AND DARRYL AREA. REPOSITIONED FOR COMFORT. VSS. HE DENIES ANY NEEDS AT THIS TIME. CALL LIGHT IN REACH. WILL CONT WITH POC.
--- NOTE | 2018-09-16 20:50 | NUR ---
FSBS 113.
--- NOTE | 2018-09-16 21:00 | NUR ---
COMPLETE BED BATH AND LINEN CHANGE PROVIDED. SCANT AMOUNT OF FECAL MATTER ON LINENS. PT WAS ABLE TO TOLERATE SMALL SIPS OF H2O. VSS. WILL CONT WITH POC.
--- NOTE | 2018-09-16 23:00 | NUR ---
REASSESSMENT COMPLETE. NO CHANGES FROM PREVIOUS ASSESSMENT. VSS. HE DENIES ANY NEEDS AT THIS TIME. REPOSITIONED FOR COMFORT. WILL CONT TO MONITOR CLOSELY.
[2018-09-17] VITALS (22 sets, daily range): BP systolic 104–147; BP diastolic 49–77
--- NOTE | 2018-09-17 01:05 | NUR ---
COMPLETE LINEN CHANGE PROVIDED. PT TOLERATED WELL AND WAS ABLE TO TURN INDEPENDENTLY. SMALL SIPS OF H2O TOLERATED. 250 ML CLEAR URINE COLLECTED IN URINAL. VSS. WILL CONT TO MONITOR CLOSELY.
--- NOTE | 2018-09-17 03:00 | NUR ---
REASSESSMENT COMPLETE. NO CHANGES IN PT CONDITION. NGT CLAMPED. VSS. ORAL CARE PROVIDED. WILL CONT WITH POC.
--- NOTE | 2018-09-17 05:00 | NUR ---
PT RESTING PEACEFULLY. VSS. REPOSITIONED FOR COMFORT. WILL CONT WITH POC.
[2018-09-17 06:00] LABS: BASOPHILS 0.2 % (0-2); EOSINOPHILS 2.4 % (0-7); HEMATOCRIT 35.1 % (42.0-54.0); IMMATURE GRANULOCYTES 0.6 % (0-5); LYMPHOCYTES 14.5 % (15-50); MCH 29.6 pg (26.0-34.0); MCHC 31.3 g/dL (31.0-37.0); MCV 94.6 fL (80.0-100.0); MEAN PLATELET VOLUME 10.4 fL (7.4-10.4); NEUTROPHILS 77.3 % (40-80); PLATELET COUNT 214 10x3/uL (130-400); RBC 3.71 10x6/uL (4.20-6.10); RDW 14.7 % (11.5-14.5); WBC 9.5 10x3/uL (4.8-10.8)
[2018-09-17 06:46] LABS: ALBUMIN 1.8 g/dL (3.4-5.0); ALKALINE PHOSPHATASE 63 U/L (46-116); BILIRUBIN - TOTAL 0.37 mg/dL (0.2-1.3); CALC OSMOLALITY 297 mosm/kg (275-300); CALCIUM 7.6 mg/dL (8.5-10.1); CARBON DIOXIDE 27.8 mmol/L (21.0-32.0); CHLORIDE - SERUM 113 mmol/L (98-107); GLUCOSE 137 mg/dL (74-106); POTASSIUM - SERUM 3.8 mmol/L (3.5-5.1); PROTEIN - SERUM 5.3 g/dL (6.4-8.2); SODIUM 147 mmol/L (136-145); UREA NITROGEN 25 mg/dL (7-18); eGFR NON AFRICAN AMERICAN 76 mL/min (90-120)
[2018-09-17 06:52] LABS: ALT (SGPT) 111 U/L (10-68)
--- NOTE | 2018-09-17 07:00 | NUR ---
REC'D CARE OF PT. A&O X3. SITTING UP IN CHAIR. CL TRAY SERVED. DENIES OTHER NEEDS. DENIES PAIN.
[2018-09-17 08:09] LABS: MAGNESIUM - SERUM 2.2 mg/dL (1.8-2.4)
--- NOTE | 2018-09-17 08:22 | NUR ---
FAMILY AT BEDSIDE. UPDATED.
--- NOTE | 2018-09-17 08:22 | NUR ---
ELECTROLYTES NORMAL. NO INTERVENTION PER PROTOCOL.
--- NOTE | 2018-09-17 08:54 | NUR ---
AMBULATED WITH BEV PT AND BACK TO CHAIR.
--- NOTE | 2018-09-17 08:58 | NUR ---
FSBS 124. NO INTERVENTION.
--- NOTE | 2018-09-17 09:58 | NUR ---
NO NAUSEA. RESTING IN CHAIR WITH EYES CLOSED. VSS.
--- NOTE | 2018-09-17 10:29 | NUR ---
REASSESSMENT COMPLETED VIA FLOW SHEET. NO ACUTE CHANGES.
--- NOTE | 2018-09-17 11:33 | NUR ---
DR. ALBERT AT BEDSIDE.
--- NOTE | 2018-09-17 12:30 | NUR ---
DR. RICKETTS AT BEDSIDE. HE DC'D NGT.
--- NOTE | 2018-09-17 12:49 | NUR ---
BACK TO BED FROM CHAIR.
--- NOTE | 2018-09-17 12:49 | NUR ---
FAMILY AT BEDSIDE. UPDATED.
--- NOTE | 2018-09-17 13:56 | NUR ---
OOB TO BATHROOM WITH ASSISTANCE.
--- NOTE | 2018-09-17 14:05 | NUR ---
BACK TO BED FROM BATHROOM. NO STOOL. NO URINE. GAS ONLY.
--- NOTE | 2018-09-17 15:22 | NUR ---
TPN WAS DUE AT 1300 BUT NOT BROUGHT UP FROM PHARMACY. CALLED AND REMINDED THEM. CONTINUE TO WAIT.
--- NOTE | 2018-09-17 15:31 | NUR ---
RESTING WITH EYES CLOSED. VSS.
--- NOTE | 2018-09-17 20:07 | NUR ---
REPORT RECEIVED, SHIFT ASSESSMENT COMPLETED PER FLOW SHEET. AAOX4. PPP. PERRLA. COUGH/DEEP BREATHING AND USE OF IS ENCOURAGED. COUGH STRONG AND NON-PRODUCTIVE. PULLING 1500 X10 ON IS. DENIES N/V. WATER WITH ICE PROVIDED PER HIS REQUEST. DENIES OTHER NEEDS. CALL LIGHT WITHIN REACH. SEE FLOW SHEET FOR COMPLETE ASSESSMENT. WILL CONTINUE TO MONITOR.
--- NOTE | 2018-09-17 21:00 | NUR ---
RESTING. DENIES NEEDS. NO ACUTE CHANGES NOTED. WILL CONTINUE TO MONITOR.
--- NOTE | 2018-09-17 23:00 | NUR ---
REASSESSMENT COMPLETED PER FLOW SHEET, SEE FOR DETAILS. NO ACUTE CHANGES NOTED. DENIES NEES. CALL LIGHT WITHIN REACH. WILL CONTINUE TO MONITOR.
[2018-09-18] VITALS (23 sets, daily range): BP systolic 111–137; BP diastolic 55–75
--- NOTE | 2018-09-18 00:40 | NUR ---
CALL LIGHT ANSWERED, LIP MOISTURIZER PROVIDED PER REQUEST. DENIES OTHER NEEDS. CALL LIGHT WITHIN REACH.
--- NOTE | 2018-09-18 01:00 | NUR ---
RESTING, NO SIGNS OF DISTRESS NOTED. CALL LIGHT WITHIN REACH. WILL CONTINUE TO MONITOR.
--- NOTE | 2018-09-18 02:11 | NUR ---
CALL LIGHT ANSWERED, 310 MLS OF JUDY UOP EMTPIED FROM URINAL, DENIES OTHER NEEDS. CALL LIGHT WITHIN REACH.
--- NOTE | 2018-09-18 03:01 | NUR ---
REASSESSMENT COMPLETED PER FLOW SHEET, SEE FOR DETAILS. NO ACUTE CHANGES NOTED. 420 MLS OF JUDY UOP EMPTIED FROM URINAL. DENIES NEEDS. CALL LIGHT WITHIN REACH. WILL CONTINUE TO MONITOR.
--- NOTE | 2018-09-18 05:00 | NUR ---
NO ACUTE CHANGES NOTED, DENIES NEEDS. WILL CONTINUE TO MONITOR.
[2018-09-18 06:51] LABS: BASOPHILS 0.2 % (0-2); EOSINOPHILS 2.3 % (0-7); HEMATOCRIT 32.2 % (42.0-54.0); HEMOGLOBIN 10.3 g/dL (13.5-17.5); IMMATURE GRANULOCYTES 0.7 % (0-5); LYMPHOCYTES 18.5 % (15-50); MCH 29.6 pg (26.0-34.0); MEAN PLATELET VOLUME 10.6 fL (7.4-10.4); MONOCYTES 4.8 % (2-11); NEUTROPHILS 73.5 % (40-80); PLATELET COUNT 208 10x3/uL (130-400); RBC 3.48 10x6/uL (4.20-6.10); RDW 14.6 % (11.5-14.5); WBC 8.1 10x3/uL (4.8-10.8)
[2018-09-18 06:52] LABS: MCV 92.5 fL (80.0-100.0)
[2018-09-18 07:03] LABS: ALBUMIN 1.7 g/dL (3.4-5.0); ALKALINE PHOSPHATASE 73 U/L (46-116); BILIRUBIN - TOTAL 0.36 mg/dL (0.2-1.3); CALC OSMOLALITY 281 mosm/kg (275-300); CALCIUM 7.1 mg/dL (8.5-10.1); CARBON DIOXIDE 29.4 mmol/L (21.0-32.0); CHLORIDE - SERUM 106 mmol/L (98-107); CREATININE - SERUM 0.9 mg/dL (0.6-1.3); GLUCOSE 133 mg/dL (74-106); POTASSIUM - SERUM 3.5 mmol/L (3.5-5.1); PROTEIN - SERUM 5.2 g/dL (6.4-8.2); SODIUM 139 mmol/L (136-145); UREA NITROGEN 19 mg/dL (7-18); eGFR NON AFRICAN AMERICAN 85 mL/min (90-120)
[2018-09-18 07:04] LABS: ALT (SGPT) 82 U/L (10-68)
[2018-09-18 07:31] LABS: MAGNESIUM - SERUM 1.9 mg/dL (1.8-2.4); PHOSPHOROUS 2.7 mg/dL (2.5-4.9)
--- NOTE | 2018-09-18 09:00 | NUR ---
PT UP OOB TO CHAIR. VSS. FL DIET SERVED AND PT FEEDS SELF WITH OUT PROBLEMS. DR NEW HERE THIS AM. P.T. AMB 170 FT WITH WALKER. PT COLLEEN WELL. FAMILY AT .
--- NOTE | 2018-09-18 09:58 | NUR ---
ASSISTED PT TO BSC. PT HAD SM AMT OF LOOSE BROWN STOOL IN WITH URINE. ASSISTED BACK TO BED.
--- NOTE | 2018-09-18 13:27 | NUR ---
AMB PT WITH WALKER ENTIRE LENGTH OF CVICU. PT COLLEEN WELL. DR HERNANDEZ AT BS. ASSISTED TO BSC AND PT HAD SM LOOSE BROWN STOOL.
--- NOTE | 2018-09-18 14:17 | NUR ---
Nutrition follow-up: Pt diet now advanced to low residue as tolerated NGT d/c'd labs reviewed noted Dr. Gauthier note to start tapering TPN. Spoke with ANTONINA Angeles - will decrease TPN rate to 35 ml/hr x 2 hours then discontinue. RDN following.
--- NOTE | 2018-09-18 16:24 | NUR ---
PT AMB IN HALLWAY PER HIS REQUEST. AMB ENTIRE LENGTH OF CVICU WITH WALKER. PT COLLEEN WELL.
--- NOTE | 2018-09-18 19:17 | NUR ---
REPORT RECEIVED, SHIFT ASSESSMENT COMPLETED PER FLOW SHEET. AAOX4. FOLLOWING COMMANDS. PPP. DENIES NEEDS. COUGH/DEEP BREATHING AND USE OF IS ENCOURAGED. PULLING 1750 ON IS. DENIES N/V. SEE FLOW SHEET FOR COMPLETE ASSESSMENT. WILL CONTINUE TO MONITOR. CALL LIGHT WITHIN REACH.
--- NOTE | 2018-09-18 20:52 | NUR ---
SCHEDULED MEDS GIVEN. HR 83. BP 135/70. DENIES NEEDS. CALL LIGHT WITHIN REACH.
--- NOTE | 2018-09-18 21:01 | NUR ---
100 MLS OF YELLOW UOP EMPTIED FROM URINAL. CALL LIGHT WITHIN REACH.
--- NOTE | 2018-09-18 23:01 | NUR ---
REASSESSEMENT COMPLETED PER FLOW SHEET, SEE FOR DETAILS. DENIES NEEDS. IS AND COUGH/DEEP BREATHING ENCOURAGED. PULLING 1750 X10 ON IS. COUGH STRONG AND NON-PRODUCTIVE. DENIES NAUSEA OR VOMITING. WILL CONTINUE TO MONITOR. CALL LIGHT WITHIN REACH.
--- NOTE | 2018-09-18 23:06 | NUR ---
POTASSIUM LEVEL 3.9, NO TREATMENT PER PROTOCOL. WILL CONTINUE TO MONITOR.
[2018-09-19] VITALS (10 sets, daily range): BP systolic 113–143; BP diastolic 57–77
--- NOTE | 2018-09-19 01:00 | NUR ---
NO ACUTE DISTRESS NOTED. DENIES NEEDS. WILL CONTINUE TO MONITOR.
--- NOTE | 2018-09-19 03:01 | NUR ---
REASSESSMENT COMPLETED PER FLOW SHEET, SEE FOR DETAILS. VSS. NO ACUTE DISTRESS NOTED. PULLING 1750 X10 ON IS. DENIES NEEDS. CALL LIGHT WITHIN REACH. WILL CONTINUE TO MONITOR.
--- NOTE | 2018-09-19 05:00 | NUR ---
NO ACUTE DISTRESS NOTED. DENIES NEEDS. CALL LIGHT WITHIN REACH. WILL CONTINUE TO MONITOR.
[2018-09-19 06:40] LABS: BASOPHILS 0.2 % (0-2); EOSINOPHILS 2.3 % (0-7); HEMATOCRIT 32.5 % (42.0-54.0); HEMOGLOBIN 10.6 g/dL (13.5-17.5); IMMATURE GRANULOCYTES 1.2 % (0-5); LYMPHOCYTES 20.6 % (15-50); MCH 29.7 pg (26.0-34.0); MCHC 32.6 g/dL (31.0-37.0); MEAN PLATELET VOLUME 10.3 fL (7.4-10.4); MONOCYTES 6.2 % (2-11); NEUTROPHILS 69.5 % (40-80); PLATELET COUNT 201 10x3/uL (130-400); RBC 3.57 10x6/uL (4.20-6.10); RDW 14.6 % (11.5-14.5); WBC 8.9 10x3/uL (4.8-10.8)
[2018-09-19 07:34] LABS: ALBUMIN 1.7 g/dL (3.4-5.0); ALKALINE PHOSPHATASE 78 U/L (46-116); ALT (SGPT) 68 U/L (10-68); BILIRUBIN - TOTAL 0.32 mg/dL (0.2-1.3); CALC OSMOLALITY 280 mosm/kg (275-300); CALCIUM 7.7 mg/dL (8.5-10.1); CARBON DIOXIDE 27.2 mmol/L (21.0-32.0); CHLORIDE - SERUM 107 mmol/L (98-107); GLUCOSE 97 mg/dL (74-106); POTASSIUM - SERUM 3.9 mmol/L (3.5-5.1); PROTEIN - SERUM 5.3 g/dL (6.4-8.2); SODIUM 140 mmol/L (136-145); UREA NITROGEN 17 mg/dL (7-18); eGFR NON AFRICAN AMERICAN 76 mL/min (90-120)
[2018-09-19 08:07] LABS: MAGNESIUM - SERUM 1.9 mg/dL (1.8-2.4); PHOSPHOROUS 2.5 mg/dL (2.5-4.9)
--- NOTE | 2018-09-19 08:59 | NUR ---
PT UP IN CHAIR. 80% OF LOW RESIDUE DIET TAKEN IN WITH OUT PROBLEMS. PT UP AMB WITH PT AT PRESENT.
--- NOTE | 2018-09-19 12:18 | NUR ---
FOLLOWUP WITH PTS PCP, DR HOOVER MADE AT [phone]. SPOKE WITH ULISES. APPT IS SCHEDULED FOR TuesdaySep AT 1000.
--- NOTE | 2018-09-19 12:22 | NUR ---
2 WEEK FOLLOWUP APPT MADE WITH DR GILLIS FOR ONCOLOGY. SPOKE WITH TONYA. APPT SCHEDULED FOR Sep AT 1500.
--- NOTE | 2018-09-19 12:35 | MORECARE ---
CASE MANAGEMENT DISCHARGE SUMMARY PATIENT: ELVIA HOLGUIN UNIT: [id number] ADM DATE: 09/09/18 AGE: 83 : 35 SEX: M ROOM/BED: [facility] AUTHOR: GENNYDOC PHYSICIAN: REFERRING PHYSICIAN: DOROTHY LAM MD DATE OF SERVICE: 09/19/18 Discharge Plan Patient Name: ELVIA HOLGUIN Facility: [facility]:[place] : 1935 Planned Disposition: Anticipated Discharge Date: 09/11/18 Discharge Date: Expected LOS: 2 Initial Reviewer: [email or web address] Initial Review Date: 09/09/2018 Generated: 09/19/18 1:35 pm Comments DCP- Discharge Planning Updated by [id number]: Jyoti Murcia on 09/19/18 11:[address] Patient Name: ELVIA HOLGUIN Encounter No: [id number] : 1935 Primary Insurance: MEDICARE A & B Anticipated DC Date: 09-11-2018 Planned Disposition: home External Planned Provider: : TONO explained and served 09/19/18 @ 1215. Patient denies discharge needs. DCP follow-up note: Patient and family in agreement with discharge plan. No changes to plan. Case management will follow and assist as needed. Jyoti Murcia DCP- Discharge Planning Updated by [id number]: Annemarie Rosenthal on 09/09/18 12:[address] Patient Name: ELVIA HOLGUIN Admission Status: ER Accout number: [id number] Admission Date: 09-09-2018 : 1935 Admission Diagnosis: Attending: DOROTHY LAM Current LOS: 1 Anticipated DC Date: 09-11-2018 Planned Disposition: Primary Insurance: MEDICARE A & B Discharge Planning Comments: CM met with patient, his , and his son to complete initial dc planning assessment. CM educated patient on the CM role and verbal consent given by patient to complete assessment. Patient lives at home with his and just discharged home on 09/08/18 status post partial pneumonectomy. Prior to his surgery he was independent in all his ADL's and IADL's. At discharge patient plans to return home with his and feels this is a safe discharge. Patient denied known discharge needs at this time. CM will continue to follow and will assist as needed with dc plans/needs. Commercial Reporter: Annemarie Rosenthal RN, [facility] DCPIA - Discharge Planning Initial Assessment Updated by [email or web address]: Annemarie Rosenthal on 09/09/18 1:37 pm * Is the patient Alert and Oriented? Yes * How many steps to enter\exit or inside your home? none * PCP Dr. Urvashi Bunch * [facility]acy [facility] * Preadmission Environment Home with Family * ADLs Independent * Equipment Rolling Walker * Other Equipment Did not use until recent surgery * List name and contact numbers for known caregivers / representatives who currently or will assist patient after discharge: Kristi Holguin - spouse - [phone] Portillo Holguin - son - [phone] * Verbal permission to speak to the caregivers and representatives has been obtained from the patient. Yes * Community resources currently utilized None * Additional services required to return to the preadmission environment? No * Can the patient safely return to the preadmission environment? Yes * Has this patient been hospitalized within the prior 30 days at any hospital? Yes Coverage Notice Reviewer: [id number] - Jyoti Murcia Notice Issued Date-Time: 09/19/2018 12:15 Notice Type: IM Discharge Notice Notice Delivered To: Family Member Relationship to Patient: Spouse Roadway Designer Name: Delivery Method: HAND - Hand Delivered Camelia Days: Prior Verbal Notification: Recipient Understood Notice: Yes Recipient Signature: Yes Med Rec Note Co-signed by Attending: Coverage Notice Comment: PATIENT REQUESTED TO SIGN Last DP export: 09/09/18 12:43 pm Patient Name: ELVIA HOLGUIN Page [phone] at 1235 All edits/amendments must be made on the electronic document DICTATION DATE: 09/19/18 1235 GRAIN HANDLER: RELL 09/19/18 1235 RPT#: [id number] DC DATE: STATUS: ADM IN [facility] [address] [place] [address] END OF REPORT
--- NOTE | 2018-09-19 12:53 | NUR ---
PT AND FAMILY VERBILIZE READINESS FOR DC TO HOME AFTER DR LAM ROUNDED. DR NEW STATES OK FOR DC WELL.
--- NOTE | 2018-09-19 14:47 | MORECARE ---
CASE MANAGEMENT DISCHARGE SUMMARY PATIENT: ELVIA HOLGUIN UNIT: [id number] ADM DATE: 09/09/18 AGE: 83 : 35 SEX: M ROOM/BED: D[facility] AUTHOR: GENNYDOC PHYSICIAN: REFERRING PHYSICIAN: DOROTHY LAM MD DATE OF SERVICE: 09/19/18 Discharge Plan Patient Name: ELVIA HOLGUIN Facility: [facility]:[place] : 1935 Planned Disposition: Anticipated Discharge Date: 09/11/18 Discharge Date: 09/19/2018 Expected LOS: 2 Initial Reviewer: [email or web address] Initial Review Date: 09/09/2018 Generated: 09/19/18 3:47 pm Comments DCP- Discharge Planning Updated by [id number]: Jyoti Murcia on 09/19/18 11:[address] Patient Name: ELVIA HOLGUIN Encounter No: [id number] : 1935 Primary Insurance: MEDICARE A & B Anticipated DC Date: 09-11-2018 Planned Disposition: home External Planned Provider: : IMM explained and served 09/19/18 @ 1215. Patient denies discharge needs. DCP follow-up note: Patient and family in agreement with discharge plan. No changes to plan. Case management will follow and assist as needed. Jyoti Gibbonsr DCP- Discharge Planning Updated by [id number]: Annemarie Rosenthal on 09/09/18 12:[address] Patient Name: ELVIA HOLGUIN Admission Status: ER Accout number: [id number] Admission Date: 09-09-2018 : 1935 Admission Diagnosis: Attending: DOROTHY LAM Current LOS: 1 Anticipated DC Date: 09-11-2018 Planned Disposition: Primary Insurance: MEDICARE A & B Discharge Planning Comments: CM met with patient, his , and his son to complete initial dc planning assessment. CM educated patient on the CM role and verbal consent given by patient to complete assessment. Patient lives at home with his and just discharged home on 09/08/18 status post partial pneumonectomy. Prior to his surgery he was independent in all his ADL's and IADL's. At discharge patient plans to return home with his and feels this is a safe discharge. Patient denied known discharge needs at this time. CM will continue to follow and will assist as needed with dc plans/needs. Photography Colorist: Annemarie Rosenthal RN, [facility] DCPIA - Discharge Planning Initial Assessment Updated by [id number]: Annemarie Rosenthal on 09/09/18 1:37 pm * Is the patient Alert and Oriented? Yes * How many steps to enter\exit or inside your home? none * PCP Dr. Urvashi Bunch * Pharmacy [facility] * Preadmission Environment Home with Family * ADLs Independent * Equipment Rolling Walker * Other Equipment Did not use until recent surgery * List name and contact numbers for known caregivers / representatives who currently or will assist patient after discharge: Kristi Holguin - spouse - [phone] Portillo Mendez son - [phone] * Verbal permission to speak to the caregivers and representatives has been obtained from the patient. Yes * Community resources currently utilized None * Additional services required to return to the preadmission environment? No * Can the patient safely return to the preadmission environment? Yes * Has this patient been hospitalized within the prior 30 days at any hospital? Yes Coverage Notice Reviewer: [id number] - Jyoti Murcia Notice Issued Date-Time: 09/19/2018 12:15 Notice Type: IM Discharge Notice Notice Delivered To: Family Member Relationship to Patient: Spouse Rack Production Worker Name: Delivery Method: HAND - Hand Delivered Camelia Days: Prior Verbal Notification: Recipient Understood Notice: Yes Recipient Signature: Yes Med Rec Note Co-signed by Attending: Coverage Notice Comment: PATIENT REQUESTED TO SIGN Last DP export: 09/19/18 11:35 a Patient Name: ELVIA HOLGUIN Page [phone] at 1447 All edits/amendments must be made on the electronic document DICTATION DATE: 09/19/181446 HUMAN RESOURCES OFFICE ASSISTANT: RELL 09/19/187 RPT#: [id number] DC DATE:09/19/18 STATUS: DIS IN [facility] [address] [place] [address] END OF REPORT
--- NOTE | 2018-09-19 15:01 | CN ---
PATIENT NAME:ELVIA MUNOZ MEDICAL RECORD: [id number] : [birth year] LOCATION:[facility] ADMIT DATE: 09/09/18 ACCOUNT: [id number] CONSULTING PHYSICIAN: ATIF DAVIS MD REFERRING PHYSICIAN: DOROTHY LAM MD DATE OF CONSULTATION: 09/16/2018 HISTORY OF PRESENT ILLNESS: An 83-year-old gentleman with known history of coronary artery disease, status post intervention to the LAD with a nondrug-eluting stent has a history of preserved diastolic function, status post recent pneumonectomy for lung carcinoma, admitted with small-bowel obstruction. We are asked to see him possible preoperatively. PAST MEDICAL HISTORY: Includes; 1. History of lung carcinoma. 2. Hypertension. 3. Hyperlipidemia. 4. Coronary artery disease as described above. ALLERGIES: HYDROCODONE, LASIX. MEDICATIONS: Include Plavix 75 mg p.o. daily, atorvastatin 20 mg p.o. at bedtime, metoprolol 25 b.i.d., aspirin 81 every day. SOCIAL HISTORY: Nonsmoker, nondrinker. Typically, takes care of all his ADLs. Does try to stay active. No set exercise program. REVIEW OF SYSTEMS: The patient reports easy bruising but reports no swollen glands. The patient reports no fever, no night sweats, no significant weight gain, no significant weight loss. No significant exercise tolerance. The patient reports no dry eyes, no irritation, no vision change. Patient reports no difficulty hearing and no ear pain. Patient reports no frequent nose bleeds or nose and sinus problems. Patient reports on arm pain on exertion. No shortness of breath while lying down. No history of heart murmur. Patient reports no cough, no wheezing or coughing up blood. Patient reports no abdominal pain, no vomiting. Normal appetite. No diarrhea and not vomiting blood. No nausea and no constipation. Patient reports no incontinence. No difficulty urinating. No hematuria. No increased frequency. Patient reports no muscle aches. No weakness, no arthralgias, no back pain. No swelling of the extremities. Patient reports no abnormal mole, no jaundice, no rashes. Reports no loss of consciousness. No weakness and no numbness. No seizures, dizziness, or headaches. The patient reports no depression, no sleep disturbance, feeling safe in a relationship and no alcohol abuse. Patient reports on fatigue. Reports no runny nose or sinus pressure. No itching, no hives, and no frequent sneezing. PHYSICAL EXAMINATION: GENERAL: Pleasant gentleman in no acute distress. VITAL SIGNS: Blood pressure 108/67, pulse 94 and regular. HEENT: Normocephalic, atraumatic. NECK: No JVD or bruit. HEART: Regular. A II/ systolic ejection murmur. LUNGS: Diminished breath sounds in the left. ABDOMEN: Hypoactive bowel sounds, nontender. EXTREMITIES: Pulses are preserved, 2+ with no edema. CONSULT REPORT [id number] ELVIA MUNOZ IMPRESSION: Stable cardiovascular standpoint. Hopefully, obstruction cleared with conservative measures, but no contraindication to surgery if this becomes indicated in the future. TRANSINT:[id number] Voice Confirmation ID: [id number] DOCUMENT ID: [id number] ATIF DAVIS MD at 1501 CC: [id number] DICTATION DATE: 09/16/18 1205 FISH AND WILDLIFE TECHNICIAN: 09/16/18 1351 DIS IN 09/19/18 [id number] [place] [address]
== END 2018-09-19 13:00 | disposition home or self-care (01) | DRG 389 ==
LOC: D.ER 06:36 → D.EDHOLD 11:40 → D.CVICU 11:40 → D.M3 11:40 → D.CVICU 09-11 17:02
PROVIDERS: Family Medicine; Thoracic Surgery (Cardiothoracic Vascular Surgery); ADMIT Internal Medicine Nephrology
PROC: 05HY33Z Insertion of Infusion Device into Upper Vein, Percutaneous Approach (ICD-10-PCS; principal; 2018-09-09)
PROC: 05HY33Z Insertion of Infusion Device into Upper Vein, Percutaneous Approach (ICD-10-PCS; 2018-09-13)
DX: K56.609 Unspecified intestinal obstruction, unspecified as to partial versus complete obstruction (principal); N17.9 Acute kidney failure, unspecified; E87.0 Hyperosmolality and hypernatremia; C34.32 Malignant neoplasm of lower lobe, left bronchus or lung; I10 Essential (primary) hypertension; K21.9 Gastro-esophageal reflux disease without esophagitis; I25.10 Atherosclerotic heart disease of native coronary artery without angina pectoris; Z95.5 Presence of coronary angioplasty implant and graft

== ENCOUNTER → 2019-01-15 08:37 | Outpatient (CLI) | payer MEDICARE, BC ==
[2018-09-11 14:54] VITALS: BMI 32.7
== END | disposition home or self-care (01) ==
LOC: D.CT 08:37
PROVIDERS: ATTEND Internal Medicine Hematology & Oncology
DX: C34.32 Malignant neoplasm of lower lobe, left bronchus or lung (principal); D70.1 Agranulocytosis secondary to cancer chemotherapy